=== PATIENT | male | born 1950 | race Caucasian/White ===

== ENCOUNTER 2021-03-09 20:52 | Inpatient (IN) | payer OTHER ==
--- OUTSIDE RECORDS SUMMARY | 2021-03-09 21:02 | XMS REPORT | Continuity of Care Document ---
:1950 Author Organization [facility] t Address [address] [place] [address] Care Team Providers Name Role Phone Michel SALAS-C, S Primary Care Physician SINCERE Attending Clinician Unavailable LEOBARDO Attending Clinician Unavailable NIDHI Attending Clinician Unavailable SOLEDAD Attending Clinician Unavailable MARTIN Attending Clinician Unavailable MICHEL Attending Clinician Unavailable Rachael FARIA Attending Clinician Unavailable MICHEL Attending Clinician Unavailable Arely Johnson MD Attending Clinician Rolf BRISENO Attending Clinician Fawad BENJAMIN Attending Clinician Unavailable SINCERE Attending Clinician Unavailable Veena Hall RN Attending Clinician Unavailable SOLEDAD Attending Clinician Unavailable STACIE Attending Clinician Unavailable Yuridia BRISENO TDara Attending Clinician Santi LEE Attending Clinician Unavailable Veena Monteiro Attending Clinician [phone] Epic, Transmittal User Attending Clinician Unavailable MILAN Attending Clinician Unavailable Jessica Piper RPH Attending Clinician Unavail able Breanna Roman Attending Clinician Unavailable Veena Orellana MD Attending Clinician JENNIFER Attending Clinician Unavailable WESLEY Attending Clinician Unavailable JESSE Attending Clinician Unavailable Attending Clinician Unavailable VALENTINE Attending Clinician Unavailable SHANNAN Attending Clinician Unavailable Payers Payer Name Policy Policy Number Effective Expiration Source Type Date Date AMERIGROUP MEDICARE [id number] 2019 ADVANTAGE PLAN 00:00:00 AMERIGROUPAMERIGROUP [id number] 2019 [place] DUAL OPTIONS STARPLUS 00:00:00 Met [place] [id number] 2019-Pre [place] AMERIVANTAGE [id number] 2019 00:00:00 TP24 QUALIFIED MEDICARE [id number] 2018 BENEFICIARY 00:00:00 AMERIGROUP MEDICARE [id number] 2019 Tashi stacy [id number] 00:00:00 Health [id number] [id number] [address] [place] MEDICAIDTP24 [id number] 2018 [facility] QUALIFIED MEDICARE 00:00:00 Health [phone] 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 12-21 Method i and and 00:00: st diastolic diastolic 00 ACC/AHA ACC/AHA stage C stage C congestive congestive heart heart failure failure COPD COPD Disease Active [place] (chronic (chronic 12-21 Method i obstructiv obstructiv 00:00: st e e 00 pulmonary pulmonary disease) disease) H/O ETOH H/O ETOH Disease Active [place] abuse abuse 12-21 Methodi 00:00: st 00 Long-term Long-term Disease Active Nathaniel ris use of use of 5-16 Health Plaquenil Plaquenil 00:00: 00 Kidney Kidney Disease Active [facility] mass mass 2-20 Health 00:00: 00 Renal Renal Disease Active Overview: [place] mass, left mass, left 1-25 Formattin Health 00:00: g of this 00 note might be different from the original. 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 2-16 Heal th involving involving 00:00: multiple multiple 00 sites with sites with positive positive rheumatoid rheumatoid factor factor Chronic, Chronic, Disease Active 2016-09 Tenz[place] s continuous continuous 1-12 He alth use of use of 00:00: opioids opioids 00 Left Left Disease Active 2016-09 [place] kidney kidney 1-05 Health mass mass 00:00: 00 Other Other Disease Active 2016-09 [place] emphysema emphysema 1-05 Heal th 00:00: 00 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, type 2, 00:00: uncontroll uncontroll 00 ed, with ed, with complicati complicati ons ons Depressive Depressive Disease Active H arris disorder, disorder, 1- Heal not not 00:00: elsewhere elsewhere 00 classified classified Ventral Ventral Disease Active [facility] hernia, hernia, 8-15 Health unspecifie unspecifie 00:00: d, without d, without 00 mention of mention of obstructio obstructio n or n or gangrene gangrene Major Major Disease Active [place] depression depression 7-29 He alth in partial in partial 00:00: remission remission 00 Alcohol Alcohol Disease Active [place] dependence dependence 04-11 He alth , in , in 00:00: remission remission 00 HTN HTN Disease Active Murphy (hypertens (hypertens 03-15 He alth ion) ion) 00:00: 00 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 Elevated Elevated Disease Active [facility] liver liver Health enzymes enzymes Obese Obese Disease Active [facility] Diabetes Diabetes Problem Active Unive rs mellitus mellitus ity of [place] Physici ans History of History of Problem Resolve Univers DKA DKA d ity of (diabetic (diabetic [place] ketoacidos ketoacidos Ph ysici es) es) ans History of History of Problem Resolve Univers ETOH abuse ETOH abuse d it y of [place] Physici ans HTN HTN Problem Active Univers (hypertens (hypertens it y of ion) ion) [place] [facility] ans Chronic Chronic Problem Active Univers GERD GERD ity of [place] [facility] ans Emphysema/ Emphysema/ Problem Active U nivers COPD COPD ity of [place] [facility] ans Left Left Problem Active Univers inguinal inguinal ity of hernia hernia [place] [facility] ans Recurrent Recurrent Problem Active Uni vers right right ity of inguinal inguinal [place] hernia hernia Physici ans History of History of Problem Active U nivers ETOH abuse ETOH abuse it y of [place] Physici ans Pain of Pain of Problem Active Univers right hand right hand it y of [place] [facility] ans Conflict Conflict Problem Active Unive rs between between ity of patient patient [place] and family and family Ph ysici ans Kidney Kidney Problem Active Univers mass mass ity of [place] Physici ans Post-nasal Post-nasal Problem Active U nivers drip drip ity of [place] Physici ans Status Status Problem Active Univers post post ity of inguinal inguinal [place] hernia hernia Physici repair repair ans Follow up Follow up Problem Active Uni vers ity of [place] [facility] ans Renal Renal Problem Active Univers carcinoma carcinoma ity of [place] [facility] ans Hematoma Hematoma Problem Active Unive rs ity of [place] Physici ans Dyspnea Dyspnea Problem Active Univers ity of [place] [facility] ans Nonproduct Nonproduct Problem Active U nivers jahaira cough jahaira cough ity of [place] Physici ans Systolic Systolic Problem Active Unive rs murmur murmur ity of [place] [facility] ans Combined Combined Problem Active Unive rs systolic systolic ity of and and [place] diastolic diastolic Phys ici heart heart ans failure failure COPD COPD Problem Active Univers (chronic (chronic [place]y of obstructiv obstructiv [place] e [place] Physici pulmonary pulmonary ans disease) disease) Bilateral Bilateral Problem Active Uni vers lower lower ity of extremity extremity [place] edema edema Physici ans Cirrhosis Cirrhosis Problem Active Uni vers ity of [place] [facility] ans Depression Depression Problem Active U nivers ity of [place] [facility] ans Preoperati Preoperati Problem Active U nivers ve ve [place] of clearance clearance [place] Anemia Anemia Problem Active Univers ity of [place] [facility] ans Hyperkalem Hyperkalem Problem Active U nivers ia ia ity of [place] [facility] ans Vitamin D Vitamin D Problem Active Uni vers deficiency deficiency it y of [place] [facility] ans Postoperat Postoperat Problem Active U nivers jahaira seroma jahaira seroma it y of of skin of skin [place] after after Physici non-dermat non-dermat an s ologic ologic procedure procedure CKD CKD Problem Active Univers (chronic (chronic ity of kidney kidney [place] disease) disease) Physic i ans Diabetic Diabetic Problem Active Unive rs peripheral peripheral it y of neuropathy neuropathy [place] associated associated Ph ysici with type with type ans 2 diabetes 2 diabetes mellitus mellitus Neuropathi Neuropathi Problem Active U nivers c pain c pain ity of [place] [facility]ici ans COVID-19 COVID-19 Problem Active Unive rs virus virus ity of detected detected [place] [facility] ans Diabetes Diabetes Problem Active Unive rs mellitus mellitus ity of with with [place] hypoglycem hypoglycem Ph ysici ia ia ans Bladder Bladder Problem Active Univers retention retention ity of of urine of urine [place] [facility] ans Sloughing Sloughing Problem Active Uni vers of wound of wound ity of [place] [facility] ans Pressure Pressure Problem Active Unive rs injury of injury of ity of sacral sacral [place] region, region, Physici stage 2 stage 2 ans Skin Skin Problem Active Univers lesions lesions ity of [place] [facility] ans Colon Colon Problem Active Univers polyps polyps ity of [place] [facility] ans Decubitus Decubitus Problem Active Uni vers ulcer, ulcer, ity of stage II stage II [place] Physici ans History of History of Problem Resolve Univers atrial atrial d ity of fibrillati fibrillati [place] on Physici ans Diabetic Diabetic Disease Resolve 2021-01-10 2021-01-10 [place] ulcer of ulcer of d 01-09 00:00:00 09:59:47 Me thodi left heel left heel 00:00: st associated associated 00 with type with type 2 diabetes 2 diabetes mellitus, mellitus, limited to limited to breakdown breakdown of skin of skin Stage III Stage III Disease Resolve 2021-01-10 2021-01-10 [place] pressure pressure d 12-21 00:00:00 09:59:54 Me [place] ulcer of ulcer of 00:00: st sacral sacral 00 region region Allergies, Adverse Reactions, Alerts Allergy Allergy Status Severity Reaction(s) Onset Inactive Treating Comm ents Source Name Type Date Date Clinician Metoprol Propensi Active Other (See Didn't [place] ol ty to Comments) 12-21 like it Method i adverse 00:00: st reaction 00 s to drug Venlafax Propensi Active Other (See unknown [place] ine ty to Comments) 12-21 Methodi adverse 00:00: st reaction 00 s to drug Venlafax Propensi Active TOM Murphy ine ty to 09-18 Health adverse 00:00: reaction 00 s to drug Metoprol Propensi Active Moderate Bruising Zambrano rris ol ty to 01-14 and leg Health adverse 00:00: swelling reaction 00 when on s to that drug medicine and cleared just after stopping so pt doesn't want to take again metoprol Allergy Active Univers ol to drug ity of (finding [place] Physici ans venlafax Allergy Active Univers ine to drug ity of (finding [place] Physici ans Family History Family Member Diagnosis Comments Start Date Stop Date Source Mother Family history of Univers ity of ETOH abuse [place] Physicia ns Father Family history of Univers ity of malignant neoplasm [place] [facility] of colon Natural father Cancer [place] [facility] Natural father Cancer [facility] Natural father Glaucoma [facility] Natural mother Alcohol abuse [place] Episcopalian Natural mother Psychiatry [facility] Natural brother Psychiatry [facility] Maternal aunt Stroke [place] [facility] Maternal Diabetes [facility] grandfather Maternal Heart [facility] grandfather Natural sister Cancer [facility] Social History Social Habit Start Date Stop Date Quantity Comments Source Sex Assigned At [facility] History [facility] Alcohol Std Episcopalian Drinks History [facility] Alcohol Binge Episcopalian History [facility] 2021-01-10 2021-01-10 1 [place] Alcohol Frequency 00:00:00 00:00:[address] Tobacco use and 2020-01-27 2020-01-27 Former user [facility] exposure 00:00:00 00:00:00 Alcohol intake 2020-01-27 2020-01-27 Current drinker of Zambrano rr Health 00:00:00 00:00:00 alcohol (finding) History [facility] Food 2019-02-15 2019-02-15 1 [facility] Worry 00:00:00 00:00:00 History [facility] Food 2019-02-15 2019-02-15 1 [facility] Scarcity 00:00:00 00:00:00 Tobacco Comment 2015-02-16 2015-02-16 quit 10 years ago Zam[facility]ano [facility] 00:00:00 00:00:00 Alcohol Comment 2015-02-16 2015-02-16 occassionally [facility] 00:00:00 00:00:00 History of 2006-12-10 Current smoker [facility] tobacco use 00:00:00 Smoking Status Start Date Stop Date Source Current every day smoker 2021-01-10 00:00:00 Ina Rincon Former smoker 2020-01-27 00:00:00 2020-01-27 00:00:00 [facility] Medications Ordered Filled Start Stop Current Ordering Indication Dosage Frequency Signature Comments Components Source Medication Medication Date Date Medication? Clinician (SIG) Name Name amIODarone Yes 200mg Take 200 [place] (PACERONE) 4-29 mg by Methodi 200 MG 09:40: mouth. st tablet 18 amLODIPine- Yes 10{caps QD Take 10 Key benazepriL 4-29 ule} capsules Metho di (LOTREL) 09:40: by mouth st 10-20 mg 18 daily. per capsule carvediloL Yes 6.25mg Q.5D Take 6.25 Key (COREG) 4-29 mg by Methodi 6.25 MG 09:40: mouth 2 st tablet 18 (two) times a day with meals. furosemide Yes 40mg Q.5D Take 40 mg [place] (LASIX) 40 4-29 by mouth 2 Met hodi mg tablet 09:40: (two) st 18 times a day. gabapentin Yes 300mg Q.[id number] Take 300 Key (NEURONTIN) 4-29 [id number] mg by M ethodi 300 mg 09:40: 3D mouth 3 st capsule 18 (three) times a day. One capsule in AM, TWO tablets at noon and one tablet in evening hydrALAZINE Yes 100mg Q.[id number] Take 100 Key (APRESOLINE 4-29 [id number] mg by M ethodi ) 100 MG 09:40: 3D mouth 3 st tablet 18 (three) times a day. INSULIN Yes Sliding [place] LISPRO 100 4-29 scale up Metho di UNIT/ML 09:40: to 30 st CARB COUNT 18 units SUBQ daily SOLUTION ORDERABLE (ADMELOG) isosorbide Yes 30mg QD Take 30 mg [place] mononitrate 4-29 by mouth Meth lori (IMDUR) 30 09:40: daily. st MG 24 hr 18 tablet lidocaine Yes 1{patch Q24H Place 1 [place] (LIDODERM) 4-29 } patch on Metho di 5 % 09:40: the skin st 18 daily. Remove & Discard patch within 12 hours or as directed by albuterol Yes 2{puff} Q8H Inhale 2 [place] (PROAIR 4-29 puffs Methodi HFA) 90 09:40: every 8 st mcg/actuati 18 (eight) on inhaler hours. collagenase Yes 1{appli QD Apply 1 Key (SANTYL) 4-29 cation} applicatio Me thodi ointment 09:40: n st 18 topically daily. SACRAL WOUND tamsulosin Yes .4mg QD Take 0.4 [place] (FLOMAX) 4-29 mg by Methodi 0.4 mg 09:40: mouth st capsule 18 daily with dinner. insulin Yes 26U QD Inject 26 [place] glargine 4-29 Units Methodi U-300 conc 09:40: under the st (Toujeo Max 18 skin U-300 daily. SoloStar) 300 unit/mL (3 mL) insulin pen traMADoL Yes acute pain 50mg Q.5D Take 50 mg Key (ULTRAM) 50 4-29 by mouth 2 Me thodi mg tablet 09:40: (two) st 18 times a day .acute pain. 1-2 tabs as needed tiotropium Yes 1{capsu QD Place 1 [place] (SPIRIVA) 4-29 le} capsule Methodi 18 mcg per 09:40: into st inhalation 05 inhaler capsule and inhale once daily. nitroglycer Yes .4mg Place 0.4 [place] in 4-29 mg under Methodi (NITROSTAT) 09:40: the tongue st 0.4 MG SL 00 every 5 tablet (five) minutes as needed for chest pain. Furosemide Furosemide Yes TAKE 1 Univers 40 MG Oral 40 MG Oral 4-05 TABLET i ty of Tablet Tablet 00:00: THREE [place] 00 DAILY. Physici ans Santyl 250 Santyl 250 Yes RENETTA apply a Univers UNIT/GM UNIT/GM 3-29 CAMACHO small ity of External External 00:00: GNP-BC amount of [place] Ointment Ointment 00 santyl Physi ci 1/2 to 1" ans inch to sacral wound daily until the slough is gone Sacral wound is 4 cm by 2 cm by 0.5 cm cover with a dressing of non stick dressing FreeStyle FreeStyle 2020- Yes KARIE Check U nivers He 2 He 2 2-18 WIRFEL blood ity of [place] 00:00: M.D. sugar up [place] Syst JOSÉ Systm JOSÉ 00 to 10 Ph ysici times ans daily and as needed. Use as directed for continuous glucose monitoring . FreeStyle FreeStyle 2019- Yes KARIE CHANGE ONE Univers He 2 He 2 2-04 WIRFEL SENSOR ity o f Sensor Sensor 00:00: M.D. EVERY 14 [place] Systm MISC Systm MISC 00 DAYS Phy sici ans pen needle, Yes Diabetes Inject [facility] diabetic 31 7-09 mellitus under the Health gauge x 00:00: type 2, skin 5 3/16" 00 uncontrolle times needles d, with daily. complicatio ns gabapentin 2019- Yes Diabetes 600mg Take 1 [place] (NEURONTIN) 7-09 mellitus tablet by Health 600 mg 00:00: type 2, mouth 3 tablet 00 uncontrolle times d, with daily Take complicatio 300mg in ns AM, 600mg at noon, and 300mg in PM. amLODIPine 2020-0 Yes Essential 10mg QD Take 1 [place] (NORVASC) 5-15 hypertensio tablet by Health 10 mg 00:00: n mouth tablet 00 daily. carvediloL 2020-0 Yes Essential 6.25mg Take 1 [place] (COREG) 5-15 hypertensio tablet by Health 6.25 mg 00:00: n mouth 2 tablet 00 times daily (with meals). insulin 2020-0 Yes Diabetes 45U QD Inject 45 H arr[place] glargine 5-15 mellitus Units Health U-300 conc 00:00: type 2, under the (TOUJEO 00 uncontrolle skin SOLOSTAR d, with daily. U-300 complicatio INSULIN) ns 300 unit/mL (1.5 mL) pen insulin 2020-0 Yes Diabetes Inject Tenzin is lispro, 5-15 mellitus under the Hea lt Human, 00:00: type 2, skin 7 (HUMALOG 00 uncontrolle units KWIKPEN d, with before INSULIN) complicatio breakfast, 100 unit/mL ns 7 units pen before lunch and 7 units before dinner. Carvedilol Carvedilol 2020-0 Yes SIMBO TAKE ONE Univers 6.25 MG 6.25 MG 4-20 CHIADIKA (1) ity o f Oral Tablet Oral Tablet 00:00: M.D. TABLET(S) [place] 00 BY MOUTH Physici TWICE ans DAILY WITH MEALS. hydrALAZINE hydrALAZINE 2020-0 Yes SIMBO 1 Q0.3333D TAKE 1 Univers HCl - 100 HCl - 100 4-20 CHIADIKA TABLET 3 ity of MG Oral MG Oral 00:00: M.D. TIMES [place] Tablet Tablet 00 DAILY Physici ans sildenafil 2020-0 Yes Take by [place] is citrate 4-17 mouth. Health (SILDENAFIL 10:15: OR) 59 FUROSEMIDE 2020-0 Yes 20mg QD Take 20 mg H arris OR 4-17 by mouth Health 10:11: daily . 50 lisinopriL 2020-0 Yes Essential 10mg QD Take 2 [facility] (PRINIVIL, 4-17 hypertensio tablets by Health ZESTRIL) 5 00:00: n mouth mg tablet 00 daily. glucagon, 2020-0 Yes Diabetes Inject Zambrano rris human 4-17 mellitus intramuscu Heal th recombinant 00:00: type 2, larly when , (GLUCAGON 00 uncontrolle signs and EMERGENCY d, with symptoms KIT) 1 complicatio of severe mg/mL ns low blood injection sugar (unconscio us).. traMADol traMADol 2019-0 Yes KARIE 1-2 tabs Univers HCl - 50 MG HCl - 50 MG 3-23 WIRFEL twice ity of Oral Tablet Oral Tablet 00:00: M.D. daily as [place] 00 needed fo Physici neuropathy ans pain lipase-prot 2019-0 Yes Alcohol-ind 1{capsu Q.[id number] Take 1 Murphy ease-amylas 3-06 uced le} [id number] capsule by [employer] (CREON) 00:00: chronic 3D mouth 3 ([id number] 00 pancreatiti times K UNIT) s daily with delayed rel meals. cap Spiriva Spiriva 2019-0 Yes RENETTA QD INHALE Un ovi HandiHaler HandiHaler 2-14 CAMACHO CONTENTS ity of 18 MCG 18 MCG 00:00: GNP-BC OF ONE (1) [place] Inhalation Inhalation 00 CAPSULE Physici Capsule Capsule VIA ans HANDIHALER ONCE A DAY. Albuterol Albuterol 2019-0 Yes SIMBO INHALE ONE Univers Sulfate HFA Sulfate HFA 2-14 CHIADIKA (1) ity of 108 (90 108 (90 00:00: M.D. PUFF(S) BY [place] Base) Base) 00 MOUTH Physici MCG/ACT MCG/ACT EVERY ans Inhalation Inhalation EIGHT Aerosol Aerosol HOURS Solution Solution NEEDED FOR CHEST TIGHTNESS/ SHORTNESS OF BREATH. 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 blood 2019-0 Yes Uncontrolle 3 times Zambrano rris glucose 1-10 d type 2 daily Health test strips 00:00: diabetes Please 00 mellitus dispense with brand that complicatio insurance n, with covers. long-term current use of insulin diclofenac 2018- Yes Rheumatoid 2g Apply 2 g [facility] (VOLTAREN) 8-05 arthritis to Heal th 1 % gel 00:00: involving affected 00 multiple area 4 sites with times positive daily. rheumatoid factor tamsulosin Yes Benign .4mg QD Take 1 Nathaniel ris (FLOMAX) 8-05 prostatic capsule by [facility] 0.4 mg 00:00: hyperplasia mouth extended 00 with daily. release urinary capsule frequency gabapentin 2019- No Diabetes 600mg Take 1 [facility] (NEURONTIN) 805 - mellitus tablet by [facility] 600 mg 00:00: 00:00 type 2, mouth 3 tablet 00 :00 uncontrolle times d, with daily Take complicatio 300mg in ns AM, 600mg at noon, and 300mg in PM. varicella-z 2019- No Encounter .5mL [facility] deana 5-31 03-22 for Health recombinant 15:30: 17:08 administrat vaccine 00 :03 ion of (SHINGRIX) vaccine 50 mcg/0.5 mL injection kit 0.5 mL pen needle, 2019- No Diabetes Inject [place] diabetic 31 2-21 03-22 mellitus under the Health gauge x 00:00: 00:00 type 2, skin 5 3/16" 00 :00 uncontrolle times needles d, with daily. complicatio ns Toujeo Toujeo 2017-09 Yes KARIE take 26 Unive rs SoloStar SoloStar 1-15 WIRFEL units ity of 300 UNIT/ML 300 UNIT/ML 00:00: M.D. subcutaneo [place] Subcutaneou Subcutaneou 00 usly daily Physici s Solution s Solution ans Pen-injecto Pen-injecto r r Lidocaine 5 Lidocaine 5 2017-09 Yes RENETTA APPLY 1 Univers % External % External 1-15 CAMACHO INCH Twice ity of Ointment Ointment 00:00: GNP-BC daily PRN [place] 00 pain apply Physici lightly to ans joints right hand Insulin Insulin 2017-09 Yes KARIE Inject Univ ers Lispro (1 Lispro (1 1-15 WIRFEL Subcutaneo ity of Unit Dial) Unit Dial) 00:00: M.D. usly with [place] 100 UNIT/ML 100 UNIT/ML 00 each meal Physici Subcutaneou Subcutaneou per a ns s Solution s Solution sliding Pen-injecto Pen-injecto scale up r r to 30 units Daily blood Yes Use as [place] glucose 8-29 directed. Health meter 00:00: 3 times 00 daily check sugars. Dispense one touch ultra meter or whatever insurance covers. Dx: E11.65 Z79.4. lancets Yes 3 times [place] 8-29 daily Health 00:00: check 00 sugars. Dispense one touch ultra meter or whatever insurance covers. Dx: E11.65 Z79.4. Gabapentin Gabapentin Yes KARIE TAKE 1 Univers 300 MG Oral 300 MG Oral 816 WIRFEL CAPSULE IN ity of Capsule Capsule 00:00: M.D. AM, 2 [place] 00 TABLETS AT Physici NOON AND 1 ans IN THE EVENING. Nitroglycer Nitroglycer Yes PLACE 1 Univers in 0.4 MG in 0.4 MG 816 TABLET ity of Sublingual Sublingual 00:00: UNDER THE [place] Tablet Tablet 00 TONGUE Physici Sublingual Sublingual EVERY 5 ans MINUTES FOR UP TO 3 DOSES NEEDED FOR CHEST PAIN.CALL 911 IF PAIN PERSISTS. Tamsulosin Tamsulosin Yes RENETTA TAKE ONE Univers HCl - 0.4 HCl - 0.4 8-16 CAMACHO (1) ity o f MG Oral MG Oral 00:00: GNP-BC CAPSULE(S) [place] Capsule Capsule 00 BY MOUTH Physi ci ONCE A ans DAY. multivitami 2009-09 Yes DM 1{tbl} QD Take 1 Tab Murphy n tablet 2-10 (diabetes by mouth He alth 00:00: mellitus) daily. 00 type II uncontrolle d with renal manifestati on Diclofenac Diclofenac Yes QD APPLY Un ovi Sodium 1 % Sodium 1 % SPARINGLY ity of GEL GEL TO [place] AFFECTED Physici AREA(S) ans ONCE DAILY Immunizations Ordered Filled Date Status Comments Source Immunization Name Immunization Name Moderna Sars-cov-2 2020-10-16 Completed [facility] Vaccination 00:00:00 Moderna Sars-cov-2 2020-09-18 Completed [facility] Vaccination 00:00:00 Moderna COVID-19 2020-09-18 Completed Universi ty of Vaccine 100 00:00:00 [place] MCG/0.5ML Physicians Intramuscular Suspension Fluzone High-Dose 2019-06-27 Completed [facility] 0.5 ML 00:00:00 [place] [facility] Suspension Prefilled Syringe Influenza, 2019-06-26 Completed [facility] Vaccine<Flubok> 00:00:00 (Preservative Free) Shingrix 50 2019-03-08 Completed University of MCG/0.5ML 00:00:00 [place] [facility] Suspension Reconstituted Zoster Vaccine 2019-02-11 Completed [facility] lt (Shingrix) 00:00:00 PCV 13 2018-10-02 Completed [facility] (Pnuemococcal 00:00:00 Conjugated 13 Valent) Fluzone High-Dose 2018-07-29 Completed [facility] 0.5 ML 00:00:00 [place] [facility] Suspension Prefilled Syringe Influenza 2018-07-26 Completed [facility] <Unspecified> 00:00:00 Zoster Vaccine 2018-04-26 Completed [facility] lt (Shingrix) 00:00:00 PNEUMOCOCCAL 2017-12-[address] [facility] h 23-VALPS VACCINE 25 00:00:00 MCG/0.5 ML INJECTION Influenza, 2017-06-22 Completed [facility] Injectable, 00:00:00 Quadrivalent PCV 13 2016-10-07 Completed [facility] (Pnuemococcal 00:00:00 Conjugated 13 Valent) Influenza Vaccine 2016-08-19 Completed [facility] 00:00:00 Influenza Vaccine 2015-07-13 Completed [facility] 00:00:00 Influenza Vaccine 2014-06-22 Completed [facility] 00:00:00 Tdap Tetanus, 2014-06-22 Completed [facility] th diphtheria, 00:00:00 acellular pertussis Vaccine Influenza Vaccine 2013-06-27 Completed [facility] 00:00:00 Twinrix-HEP A&b 2012-07-02 Completed [facility] alth 00:00:00 Influenza Vaccine 2012-06-08 Completed [facility] 00:00:00 Twinrix-HEP A&b 2012-01-21 Completed [facility] alth 00:00:00 Twinrix-HEP A&b 2012-01-01 Completed [facility] alth 00:00:00 Influenza Vaccine 2011-07-11 Completed [facility] 00:00:00 Influenza Vaccine 2010-08-23 Completed [facility] 00:00:00 PPV 23 Pneumococcal 2009-09-14 Completed [facility] Polysaccaride 00:00:00 Pneumococcal Unknown Completed [facility] polysaccharide [id number] [place] vaccine, 23 valent Physic ians Fluzone High-Dose Unknown Completed [facility] 0.5 ML [id number] [place] [facility] Suspension Prefilled Syringe Moderna COVID-19 Unknown Completed [facility] Vaccine 100 [place] MCG/0.5ML Physicians Intramuscular Suspension Vital Signs Vital Name Observation Time Observation Value Comments Source Systolic blood 2021-01-14 153 mm[Hg] Location: [facility]; [facility] 15:10:00 Position: [place] [facility] Standing Diastolic blood 2021-01-14 80 mm[Hg] Location: RUE; [facility] pressure 15:10:00 Position: [place] [facility] Standing Heart Rate 2021-01-14 42 /min [facility] 15:10:00 [place] [facility] Systolic blood 2021-01-14 154 mm[Hg] Location: JOHN; [facility] 15:05:00 Position: [place] [facility] Sitting Diastolic blood 2021-01-14 84 mm[Hg] Location: JOHN; [facility] 15:05:00 Position: [place] [facility] Sitting Heart Rate 2021-01-14 51 /min [facility] 15:05:00 [place] [facility] Body height 2021-01-14 72 [in_us] [facility] 15:05:00 [place] [facility] Weight 2021-01-14 162.5 [lb_av] [facility] 15:05:00 [place] [facility] Body mass index 2021-01-14 22.04 kg/m2 University o f (BMI) [Ratio] 15:05:00 [place] [facility] Body temperature 2021-01-14 96.8 [degF] Method: [facility] 15:05:00 Temporal [place] [facility] Systolic blood 2021-01-10 105 mm[Hg] [place] pressure 10:15:00 [facility] Diastolic blood 2021-01-10 68 mm[Hg] [place] pressure 10:15:00 [facility] Heart rate 2021-01-10 76 /min [place] 10:15:00 [facility] Body temperature 2021-01-10 36 Tejal [place] 09:50:00 [facility] Respiratory rate 2021-01-10 17 /min [place] 09:50:00 [facility] Body height 2021-01-10 182.9 cm [place] 09:50:00 [facility] Body weight 2021-01-10 72.576 kg [place] 09:50:00 [facility] BMI 2021-01-10 21.70 kg/m2 [place] 09:50:00 [facility] Systolic blood 2020-12-18 142 mm[Hg] Location: JOSIAS; [facility] 10:40:00 Position: [place] [facility] Sitting Diastolic blood 2020-12-18 70 mm[Hg] Location: JOHN; [facility] 10:40:00 Position: [place] [facility] Sitting Body height 2020-12-18 72 [in_us] [facility] 10:40:00 [place] [facility] Weight 2020-12-18 161.2 [lb_av] [facility] 10:40:00 [place] [facility] Body mass index 2020-12-18 21.86 kg/m2 University o f (BMI) [Ratio] 10:40:00 [place] [facility] Body temperature 2020-12-18 99.3 [degF] Method: [facility] 10:40:00 Temporal [place] [facility] Heart Rate 2020-12-18 62 /min Location: R [facility] 10:40:00 Brachial [place] [facility] Artery; Respiratory rate 2020-12-18 20 /min [facility] 10:40:00 [place] [facility] Systolic blood 2020-12-17 95 mm[Hg] Location: JOSIAS; [facility] pressure 10:08:00 Position: [place] [facility] Standing Diastolic blood 2020-12-17 65 mm[Hg] Location: JOSIAS; [facility] 10:08:00 Position: [place] [facility] Standing Heart Rate 2020-12-17 71 /min Location: R [facility] 10:08:00 Brachial [place] [facility] Artery; Systolic blood 2020-12-17 151 mm[Hg] Location: JESUS; [facility] pressure 10:04:00 Position: [place] [facility] Sitting Diastolic blood 2020-12-17 94 mm[Hg] Location: JOVI; [facility] pressure 10:04:00 Position: [place] [facility] Sitting Heart Rate 2020-12-17 73 /min Location: L [facility] 10:04:00 Brachial [place] [facility] Artery; Body height 2020-12-17 72 [in_us] [facility] 10:04:00 [place] [facility] Weight 2020-12-17 163.125 [lb_av] [facility] o f 10:04:00 [place] [facility] Body mass index 2020-12-17 22.12 kg/m2 University o f (BMI) [Ratio] 10:04:00 [place] [facility] Body temperature 2020-12-17 96.3 [degF] Method: [facility] 10:04:00 Tympanic [place] [facility] Body mass index 2020-12-10 21.84 kg/m2 University o f (BMI) [Ratio] 09:47:00 [place] [facility] Body temperature 2020-12-10 96.7 [degF] Method: [facility] 09:47:00 Temporal [place] [facility] Heart Rate 2020-12-10 73 /min [facility] 09:47:00 [place] [facility] Systolic blood 2020-12-10 139 mm[Hg] Location: JOVI; [facility] pressure 09:47:00 Position: [place] [facility] Sitting Diastolic blood 2020-12-10 70 mm[Hg] Location: VERN [facility] 09:47:00 Position: [place] [facility] Sitting Body height 2020-12-10 72 [in_us] [facility] 09:47:00 [place] [facility] Weight 2020-12-10 161 [lb_av] [facility] of 09:47:00 [place] [facility] Oxygen saturation 2020-11-02 98 /min [place] in Arterial blood 21:56:00 [facility] by Pulse oximetry Systolic blood 2020-10-15 129 mm[Hg] Location: VERN [facility] 10:41:00 Position: [place] [facility] Standing Diastolic blood 2020-10-15 76 mm[Hg] Location: VERN [facility] 10:41:00 Position: [place] [facility] Standing Heart Rate 2020-10-15 81 /min Location: Catherine [facility] 10:41:00 Brachial [place] [facility] Artery; Systolic blood 2020-10-15 134 mm[Hg] Location: VERN [facility] 10:38:00 Position: [place] [facility] Sitting Diastolic blood 2020-10-15 60 mm[Hg] Location: VERN [facility] pressure 10:38:00 Position: [place] [facility] Sitting Heart Rate 2020-10-15 69 /min Location: Catherine [facility] 10:38:00 Brachial [place] [facility] Artery; Body height 2020-10-15 72 [in_us] [facility] 10:38:00 [place] [facility] Weight 2020-10-15 153.5 [lb_av] [facility] 10:38:00 [place] [facility] Body mass index 2020-10-15 20.82 kg/m2 University o f (BMI) [Ratio] 10:38:00 [place] [facility] Body temperature 2020-10-15 97.2 [degF] [facility] 10:38:00 [place] [facility] O2 SAT 2020-10-15 100 % Source: [facility] 10:38:00 [place] [facility] Systolic blood 2020-08-17 140 mm[Hg] [facility] pressure 14:33:00 [place] [facility] Diastolic blood 2020-08-17 78 mm[Hg] [facility] pressure 14:33:00 [place] [facility] Systolic blood 2020-08-17 151 mm[Hg] Location: RUE; [facility] pressure 10:16:00 Position: [place] [facility] Sitting Diastolic blood 2020-08-17 76 mm[Hg] Location: RUE; [facility] pressure 10:16:00 Position: [place] [facility] Sitting Heart Rate 2020-08-17 61 /min Location: R [facility] 10:16:00 Brachial [place] [facility] Artery; Systolic blood 2020-08-17 160 mm[Hg] Location: RUE; [facility] pressure 10:12:00 Position: [place] [facility] Sitting Diastolic blood 2020-08-17 76 mm[Hg] Location: RUE; [facility] pressure 10:12:00 Position: [place] [facility] Sitting Heart Rate 2020-08-17 73 /min Location: R [facility] 10:12:00 Brachial [place] [facility] Artery; Body height 2020-08-17 72 [in_us] [facility] 10:12:00 [place] [facility] Weight 2020-08-17 149.0 [lb_av] [facility] 10:12:00 [place] [facility] Body mass index 2020-08-17 20.21 kg/m2 University o f (BMI) [Ratio] 10:12:00 [place] [facility] Body temperature 2020-08-17 97.3 [degF] Method: [facility] 10:12:00 Temporal [place] [facility] Respiratory rate 2020-08-17 16 /min [facility] 10:12:00 [place] [facility] Systolic blood 2020-05-14 116 mm[Hg] Location: RUE; [facility] pressure 10:56:00 Position: [place] [facility] Sitting Diastolic blood 2020-05-14 57 mm[Hg] Location: RUE; [facility] pressure 10:56:00 Position: [place] [facility] Sitting Body height 2020-05-14 72 [in_us] [facility] 10:56:00 [place] [facility] Body mass index 2020-05-14 20.37 kg/m2 [facility] o f (BMI) [Ratio] 10:56:00 [place] [facility] Weight 2020-05-14 150.2 [lb_av] [facility] 10:56:00 [place] [facility] Body temperature 2020-05-14 98.2 [degF] Method: [facility] 10:56:00 Temporal [place] [facility] Heart Rate 2020-05-14 57 /min Location: R [facility] 10:56:00 Brachial [place] [facility] Artery; Respiratory rate 2020-05-14 16 /min Quality: Normal [facility] 10:56:00 [place] [facility] Systolic blood 2020-05-14 125 mm[Hg] Location: RUE; [facility] pressure 09:32:00 Position: [place] [facility] Standing Diastolic blood 2020-05-14 70 mm[Hg] Location: RUE; [facility] pressure 09:32:00 Position: [place] [facility] Standing Heart Rate 2020-05-14 65 /min [facility] 09:32:00 [place] [facility] Systolic blood 2020-05-14 129 mm[Hg] Location: RUE; [facility] pressure 09:31:00 Position: [place] [facility] Sitting Diastolic blood 2020-05-14 67 mm[Hg] Location: RUE; [facility] pressure 09:31:00 Position: [place] [facility] Sitting Heart Rate 2020-05-14 73 /min [facility] 09:31:00 [place] [facility] Body height 2020-05-14 72 [in_us] University 09:31:00 [place] [facility] Weight 2020-05-14 150 [lb_av] University 09:31:00 [place] [facility] Body mass index 2020-05-14 20.34 kg/m2 University o f (BMI) [Ratio] 09:31:00 [place] [facility] Body temperature 2020-05-14 97.8 [degF] Method: [facility] 09:31:00 [place] [facility] Systolic blood 2020-05-07 133 mm[Hg] [facility] pressure 09:42:00 [place] [facility] Diastolic blood 2020-05-07 77 mm[Hg] [facility] pressure 09:42:00 [place] [facility] Systolic blood 2020-04-30 181 mm[Hg] [facility] pressure 11:36:00 [place] [facility] Diastolic blood 2020-04-30 119 mm[Hg] [facility] pressure 11:36:00 [place] [facility] Heart Rate 2020-04-30 71 /min [facility] 11:36:00 [place] [facility] Systolic blood 2020-01-02 155 mm[Hg] [facility] pressure 16:44:00 [place] [facility] Diastolic blood 2020-01-02 104 mm[Hg] [facility] pressure 16:44:00 [place] [facility] Heart Rate 2020-01-02 75 /min [facility] 16:44:00 [place] [facility] Systolic blood 2019 132 mm[Hg] [facility] pressure 09:48:00 [place] [facility] Diastolic blood 2019 74 mm[Hg] [facility] pressure 09:48:00 [place] [facility] Body height 2019 72 [in_us] [facility] 09:48:00 [place] [facility] Weight 2019 153.8 [lb_av] [facility] 09:48:00 [place] [facility] Body mass index 2019 20.86 kg/m2 University o f (BMI) [Ratio] 09:48:00 [place] [facility] Body temperature 2019 97.5 [degF] [facility] 09:48:00 [place] [facility] Heart Rate 2019 70 /min [facility] 09:48:00 [place] [facility] Systolic blood 2019-11-18 158 mm[Hg] [place] [facility] [facility] 08:13:00 Position: [place] [facility] Standing Diastolic blood 2019-11-18 89 mm[Hg] Location: JESUS; [facility] 08:13:00 Position: [place] [facility] Standing Heart Rate 2019-11-18 71 /min Location: [facility] 08:13:00 Brachial [place] [facility] Artery; Systolic blood 2019-11-18 159 mm[Hg] [place] [facility] [facility] 08:11:00 Position: [place] [facility] Sitting Diastolic blood 2019-11-18 90 mm[Hg] Location: [facility] 08:11:00 Position: [place] [facility] Sitting Heart Rate 2019-11-18 72 /min Location: [facility] 08:11:00 Brachial [place] [facility] Artery; Body height 2019-11-18 72 [in_us] [facility] 08:11:00 [place] [facility] Weight 2019-11-18 159 [lb_av] [facility] 08:11:00 [place] [facility] Body mass index 2019-11-18 21.56 kg/m2 University o f (BMI) [Ratio] 08:11:00 [place] [facility] Body temperature 2019-11-18 97.1 [degF] Method: Oral [facility] 08:11:00 [place] [facility] Temperature 2019-10-03 97.7 [degF] Method: Oral [facility] 09:27:00 [place] [facility] BP Systolic 2019-10-03 150 mm[Hg] Location: JOVI; [facility] Position: [place] [facility] Standing BP Diastolic 2019-10-03 79 mm[Hg] Location: JOVI; [facility] :: Position: [place] [facility] Standing Heart Rate 2019-10-03 52 /min Location: [facility] :: Brachial [place] [facility] Artery; BP Systolic 2019-10-03 153 mm[Hg] Location: JESUS; [facility] :: Position: [place] [facility] Sitting BP Diastolic 2019-10-03 82 mm[Hg] Location: JOVI; [facility] :: Position: [place] [facility] Sitting Temperature 2019-10-03 97.7 [degF] Method: Oral [facility] :: [place] [facility] Heart Rate 2019-10-03 57 /min Location: [facility] :: Brachial [place] [facility] Artery; Height 2019-10-03 72 [in_us] [facility] :: [place] [facility] Weight 2019-10-03 161.5 [lb_av] [facility] :: [place] [facility] Body Mass Index 2019-10-03 21.9 kg/m2 University o f Calculated 09::00 [place] [facility] BP Systolic 2019-09-02 132 mm[Hg] [facility] :34: Position: [place] [facility] Standing BP Diastolic 2019-09-02 72 mm[Hg] [place] [facility] [facility] :34: Position: [place] [facility] Standing Heart Rate 2019-09-02 80 /min [facility] :34: [place] [facility] BP Systolic 2019-09-02 129 mm[Hg] Location: JESUS; [facility] :32: Position: [place] [facility] Sitting BP Diastolic 2019-09-02 70 mm[Hg] Location: [facility] :32: Position: [place] [facility] Sitting Heart Rate 2019-09-02 84 /min [facility] :32:00 [place] [facility] Height 2019-09-02 72 [in_us] University of :32:00 [place] [facility] Weight 2019-09-02 174.125 [lb_av] University o f 10:32:00 [place] [facility] Body Mass Index 2019-09-02 23.62 kg/m2 University o f Calculated 10:32:00 [place] [facility] Temperature 2019-09-02 97.5 [degF] Method: Oral [facility] 10:32:00 [place] [facility] BP Systolic 2019-08-10 129 mm[Hg] Location: JOVI; [facility] 10:38:00 Position: [place] [facility] Standing BP Diastolic 2019-08-10 77 mm[Hg] Location: JOVI; [facility] :38:00 Position: [place] [facility] s Standing Heart Rate 2019-08-10 83 /min [facility] 10:38:00 [place] [facility] BP Systolic 2019-08-10 114 mm[Hg] Location: JOVI; [facility] 10:36:00 Position: [place] [facility] Sitting BP Diastolic 2019-08-10 64 mm[Hg] Location: JOVI; [facility] 10:36:00 Position: [place] [facility] Sitting O2 SAT 2019-08-10 93 % Source: [facility] of 10:36:00 [place] [facility] Heart Rate 2019-08-10 64 /min University of 10:36:00 [place] [facility] Height 2019-08-10 72 [in_us] [facility] of 10:36:00 [place] [facility] Weight 2019-08-10 164.375 [lb_av] University o f 10:36:00 [place] [facility] Body Mass Index 2019-08-10 22.29 kg/m2 University o f Calculated 10:36:00 [place] [facility] Temperature 2019-08-10 97.8 [degF] Method: Oral [facility] 10:36:00 [place] [facility] BP Systolic 2019-06-29 134 mm[Hg] Location: JOVI; [facility] 13:08:00 Position: [place] [facility] s Sitting BP Diastolic 2019-06-29 81 mm[Hg] Location: JOVI; [facility] 13:08:00 Position: [place] [facility] Sitting O2 SAT 2019-06-29 98 % Source: [facility] 13:08:00 [place] [facility] Heart Rate 2019-06-29 66 /min Location: [facility] 13:08:00 Brachial [place] [facility] Artery; Height 2019-06-29 72 [in_us] University of 13:08:00 [place] [facility] Weight 2019-06-29 161.5 [lb_av] [facility] of 13:08:00 [place] [facility] Body Mass Index 2019-06-29 21.9 kg/m2 University o f Calculated 13:08:00 [place] [facility] Temperature 2019-06-29 97.5 [degF] Method: [facility] of 13:08:00 [place] [facility] BP Systolic 2019-06-28 131 mm[Hg] Location: [facility] 12:23:00 Position: [place] [facility] Sitting BP Diastolic 2019-06-28 87 mm[Hg] Location: [facility] 12:23:00 Position: [place] [facility] Sitting Heart Rate 2019-06-28 64 /min [facility] 12:23:00 [place] [facility] Temperature 2019-06-28 97.6 [degF] [facility] 12:23:00 [place] [facility] O2 SAT 2019-06-28 100 % Source: [facility] 12:23:00 [place] [facility] BP Systolic 2019-06-28 130 mm[Hg] University 10:26: [place] [facility] BP Diastolic 2019-06-28 69 mm[Hg] [facility] 10:26:00 [place] [facility] Height 2019-06-28 72 [in_us] University 10:26:00 [place] [facility] Weight 2019-06-28 169.6 [lb_av] [facility] 10:26:00 [place] [facility] Body Mass Index 2019-06-28 23 kg/m2 University o f Calculated 10:26:00 [place] [facility] Temperature 2019-06-28 97.3 [degF] [facility] 10:26:00 [place] [facility] Heart Rate 2019-06-28 67 /min University 10:26:00 [place] [facility] BP Systolic 2019-06-07 154 mm[Hg] University 09:43:00 [place] [facility] BP Diastolic 2019-06-07 86 mm[Hg] University 09:43:00 [place] [facility] Height 2019-06-07 72 [in_us] University 09:43:00 [place] [facility] Weight 2019-06-07 169 [lb_av] University 09:43:00 [place] [facility] Body Mass Index 2019-06-07 22.92 kg/m2 University o f Calculated 09:43:00 [place] [facility] Temperature 2019-06-07 98.1 [degF] [facility] 09:43:00 [place] [facility] Heart Rate 2019-06-07 62 /min University 09:43:00 [place] [facility] Heart Rate 2019-03-28 64 /min Location: [facility] 09:18:00 Radial; [place] [facility] Quality: Normal BP Systolic 2019-03-28 148 mm[Hg] [facility] [place] [facility] 09:10:00 Position: [place] [facility] Standing BP Diastolic 2019-03-28 99 mm[Hg] [place] [facility] [facility] 09:10:00 Position: [place] [facility] Standing Heart Rate 2019-03-28 42 /min University of 09:10:00 [place] [facility] BP Systolic 2019-03-28 147 mm[Hg] [place] [facility] [facility] 09:09:00 Position: [place] [facility] Sitting BP Diastolic 2019-03-28 83 mm[Hg] [place] [facility] [facility] 09:09:00 Position: [place] [facility] Sitting Heart Rate 2019-03-28 74 /min [facility] 09:09:00 [place] [facility] Height 2019-03-28 72 [in_us] University 09:09:00 [place] [facility] Weight 2019-03-28 169.125 [lb_av] University o 09:09:00 [place] [facility] Body Mass Index 2019-03-28 22.94 kg/m2 University o f Calculated 09:09:00 [place] [facility] Temperature 2019-03-28 97.9 [degF] Method: Oral University 09:09:00 [place] [facility] BP Systolic 2019-03-08 154 mm[Hg] [place] [facility] [facility] 14:46:00 Position: [place] [facility] Sitting BP Diastolic 2019-03-08 83 mm[Hg] Location: [facility] 14:46:00 Position: [place] [facility] Sitting Height 2019-03-08 72 [in_us] University of 14:46:00 [place] [facility] Weight 2019-03-08 170 [lb_av] [facility] 14:46:00 [place] [facility] Body Mass Index 2019-03-08 23.06 kg/m2 University o Calculated 14:46:00 [place] [facility] Temperature 2019-03-08 97.8 [degF] Method: University 14:46:00 Temporal [place] [facility] Heart Rate 2019-03-08 69 /min University of 14:46:00 [place] [facility] BP Systolic 2019-02-01 140 mm[Hg] University of 09:46:00 [place] [facility] BP Diastolic 2019-02-01 87 mm[Hg] University of 09:46:00 [place] [facility] Height 2019-02-01 72 [in_us] [facility] of 09:46:00 [place] [facility] Weight 2019-02-01 167.8 [lb_av] [facility] of 09:46:00 [place] [facility] Body Mass Index 2019-02-01 22.76 kg/m2 University o f Calculated 09:46:00 [place] [facility] Heart Rate 2019-02-01 76 /min [facility] 09:46:00 [place] [facility] Procedures Procedure Date / Time Performing Clinician Source Performed HC [facility] 2021-01-10 09:30:00 Itzel Bansalist 20SQCM OR < [O] Hemoglobin A1c (in 2020-12-18 00:00:00 [facility] office) Physicians Glucose (Point of Care In 2020-12-18 00:00:00 [facility] Office) Physicians [QL] BASIC METABOLIC 2020-12-17 00:00:00 [facility] PANEL W/EGFR Physicians HC COMPLETE BLD COUNT 2020-11-02 20:34:00 Jose Gonzalez [facility] W/AUTO DIFF COMPREHENSIVE METABOLIC 2020-11-02 20:06:00 Jose Gonzalez PANEL ESTIMATED GFR 2020-11-02 20:06:00 Jose Gonzalez ethodist ECG 12-LEAD 2020-11-02 19:42:39 Jose Gonzalez ethodist ECG ED PRELIMINARY 2020-11-02 19:20:05 Jose Gonzalez [facility] INTERPRETATION [Q] COMPREHENSIVE 2020-10-15 00:00:00 [facility] METABOLIC PANEL W/eGFR Physician s (REFL) [O] Hemoglobin A1c (in 2020-08-17 00:00:00 [facility] office) Physicians Glucose (Point of Care In 2020-08-17 00:00:00 [facility] Office) Physicians [QL] CBC (INCLUDES 2020-05-30 00:00:00 [facility] DIFF/PLT) Physicians [QL] CMP W/EGFR 2020-05-30 00:00:00 [facility] [place] [facility] [QL] LIPID PANEL 2020-05-30 00:00:00 [facility] Physicians [QL] PROTHROMBIN TIME-INR 2020-05-30 00:00:00 Un [facility] Physicians [Q] COMPREHENSIVE 2020-04-30 00:00:00 [facility] METABOLIC PANEL W/eGFR Physician s (REFL) [QL] COMPREHENSIVE 2020-01-02 00:00:00 [facility] METABOLIC PANEL W/O eGFR Physici ans [UTP] Neuro - 2019 00:00:00 [facility] Interventional Radiology Physici ans [QLH] HEMOGLOBIN A1c 2019-11-18 00:00:00 [facility] Physicians [QLH] CMP W/EGFR 2019-11-18 00:00:00 [facility] Physicians [QLH] VITAMIN D, 2019-11-18 00:00:00 [facility] 25-HYDROXY, LC/MS/MS Physicians [QLH] PROTHROMBIN 2019-10-17 00:00:00 [facility] TIME-INR Physicians [QLH] CBC (INCLUDES 2019-10-17 00:00:00 [facility] DIFF/PLT) Physicians [QLH] BASIC METABOLIC 2019-10-17 00:00:00 [facility] PANEL W/EGFR Physicians [QLH] HEPATIC FUNCTION 2019-10-17 00:00[facility] [QLH] PROBNP, N TERMINAL 2019-10-03 00:00:00 [facility] [Q] COMPREHENSIVE 2019-10-03 00:00:00 [facility] METABOLIC PANEL W/eGFR Physician s (REFL) Coronary Angiography 2019-10-03 00:00:00 [facility] Physicians [QLH] CMP W/EGFR 2019-09-02 00:00:00 [facility] Physicians [QLH] HEMOGLOBIN A1c 2019-09-02 00:00:00 [facility] Physicians [QLH] OCCULT BLOOD, 2019-08-22 00:00:00 [facility] STOOL, SCREENING Physicians [L] BMP8+eGFR 2019-08-10 00:00:00 [facility] Physicians [L] Vitamin D, 2019-08-10 00:00:00 [facility] 25-Hydroxy, Total - Physicians [employer] [QLH] CBC (INCLUDES 2019-08-10 00:00:00 [facility] DIFF/PLT) Physicians [QL] LIPID PANEL 2019-08-10 00:00:00 [facility] Physicians [LH] TSH+Free T4 2019-08-10 00:00:00 [facility] Physicians [N] 2D Echo complete, 2019-07-02 00:00:00 [facility] with Doppler [id number] Abdomen/Pelvis w 2019-06-28 00:00:00 [facility] contrast 09014 Physicians [QL] CBC (INCLUDES 2019-06-07 00:00:00 [facility] DIFF/PLT) Physicians [QL] BASIC METABOLIC 2019-06-07 00:00:00 [facility] PANEL W/EGFR Physicians CT Abdomen/Pelvis wo 2019-06-07 00:00:00 [facility] contrast [id number] Abd Renal Protocol 2019-06-07 00:00:00 [facility] w/wo IV contrast 77617-56 Physic ians XRAY Chest 2 views 17295 2019-06-07 00:00:00 [facility]] HEPATITIS C 2019-03-28 00:00:00 [facility] ANTIBODY Physicians CT Abd Renal Protocol 2019-03-08 00:00:00 [facility] w/[place] contrast 77014-28 Physic ians History of Hernia Repair [facility] Physicians History of Cataract [facility] surgery Physicians History of Cardioverter [facility] defibrillator insertion Physicia ns Plan of Care Planned Activity Planned Date Details Comments Source Future Scheduled 2021-06-14 IMM Influenza Seasonal [facility] Test 00:00:00 Jun to November (>/= 19 yrs) [code = IMM Influenza Seasonal Jun to November (>/= 19 yrs)] Future Scheduled 2021-04-14 INFLUENZA VACCINE [code [facility] Test 00:00:00 = INFLUENZA VACCINE] Future Scheduled 2020-10-18 Hemoglobin A1c [facility] Test 00:00:00 measurement (procedure) [code = 10433547] Future Scheduled 2020-10-17 DM Foot Exam (Yearly) [facility] Test 00:00:00 [code = DM Foot Exam (Yearly)] Future Scheduled 2020-09-23 Screening for malignant [facility] Test 00:00:00 neoplasm of colon (procedure) [code = 899013732] Future Scheduled 2020-09-23 Screening for malignant [facility] Test 00:00:00 neoplasm of colon (procedure) [code = 795643486] Future Scheduled 2020-09-19 DM Retinal Exam [facility] 00:00:00 (Yearly) [code = DM Retinal Exam (Yearly)] Diagnostic Test 2019-12-06 CT Abd Renal Protocol Uni versity of Pending 00:00:00 w/wo IV contrast Ean Ring cians 80471-67 [code = 66237-70] Diagnostic Test 2019-12-06 CT Abd Renal Protocol Uni versity of Pending 00:00:00 w/wo IV contrast Ean Physi amor 59869-54 [code = 98357-51] Diagnostic Test 2019-12-06 CT Abd Renal Protocol Uni versity of Pending 00:00:00 w/wo IV contrast Ean Physi thorns 39574-19 [code = 18897-19] Diagnostic Test 2019 [UTP] Neuro - [facility] of Pending 00:00:00 Interventional [place] Physici ans Radiology [code = [UTP] Neuro - Interventional Radiology] Diagnostic Test 2019 [UTP] Neuro - [facility] of Pending 00:00:00 Interventional [place] Physici ans Radiology [code = [UTP] Neuro - Interventional Radiology] Diagnostic Test 2019-08-18 [L] BMP8+eGFR [code = Uni versity of Pending 00:00:00 [L] BMP8+eGFR] [facility] 2019-08-18 [L] Vitamin D, [facility] Pending 00:00:00 25-Hydroxy, Total - [place] Ph ysicians [facility] [code = [L] Vitamin D, 25-Hydroxy, Total - [facility]] Diagnostic Test 2019-08-18 [QL] CBC (INCLUDES Unive rsity of Pending 00:00:00 DIFF/PLT) [code = [QL] [place] [facility] CBC (INCLUDES DIFF/PLT)] Diagnostic Test 2019-08-18 [QL] LIPID PANEL [code U niversity of Pending 00:00:00 = [QL] LIPID PANEL] [place] P hysicians Diagnostic Test 2019-08-18 [LH] TSH+Free T4 [code Un iversity of Pending 00:00:00 = [LH] TSH+Free T4] [place] [facility] Diagnostic Test 2019-08-18 [L] BMP8+eGFR [code = Uni versity of Pending 00:00:00 [L] BMP8+eGFR] [facility] 2019-08-18 [L] Vitamin D, [facility] Pending 00:00:00 25-Hydroxy, Total - [place] Ph ysicians [facility] [code = [L] Vitamin D, 25-Hydroxy, Total - [facility]] Diagnostic Test 2019-08-18 [QLH] CBC (INCLUDES Unive rsity of Pending 00:00:00 DIFF/PLT) [code = [QLH] [place] [facility] CBC (INCLUDES DIFF/PLT)] Diagnostic Test 2019-08-18 [QLH] LIPID PANEL [code U niversity of Pending 00:00:00 = [QL] LIPID PANEL] [place] P [facility]ys[facility] Diagnostic Test 2019-08-18 [LH] TSH+Free T4 [code Un iversity of Pending 00:00:00 = [LH] TSH+Free T4] [place] [facility] Diagnostic Test 2019-07-02 [N] 2D Echo complete, Uni versity of Pending 00:00:00 with Doppler 90577 [place] [facility] [code = [N] 2D Echo complete, with Doppler 31902] Diagnostic Test 2019-07-02 [N] 2D Echo complete, Uni versity of Pending 00:00:00 with Doppler 34807 [place] [facility]icians [code = [N] 2D Echo complete, with Doppler 57233] Future Scheduled 2002 COLONOSCOPY SCREENING [place] [facility] Test 00:00:00 [code = COLONOSCOPY SCREENING] Future Scheduled 2002 SHINGLES VACCINES (#1) [place] [facility] Test 00:00:00 [code = SHINGLES VACCINES (#1)] Future Scheduled 2002 Screening for malignant [facility] Test 00:00:00 neoplasm of colon (procedure) [code = 847062932] Future Scheduled 2002 Screening for malignant [facility] Test 00:00:00 neoplasm of colon (procedure) [code = 919898726] Future Scheduled 2002 Screening for malignant [facility] Test 00:00:00 neoplasm of colon (procedure) [code = 390166879] Future Scheduled 1970 Hepatitis C screening [place] [facility] Test 00:00:00 (procedure) [code = 365622977] Future Scheduled 1962 DIABETES: RETINAL EYE [place] [facility] Test 00:00:00 EXAM [code = DIABETES: RETINAL EYE EXAM] Future Scheduled 1962 DIABETIC FOOT EXAM [place] [facility] Test 00:00:00 [code = DIABETIC FOOT EXAM] Future Scheduled 1962 URINE MICROALBUMIN [place] [facility] 00:00:00 [code = URINE MICROALBUMIN] Future Scheduled 1958 65+ PNEUMOCOCCAL [facility] Test 00:00:00 VACCINE (1 of 2 - PPSV23) [code = 65+ PNEUMOCOCCAL VACCINE (1 of 2 - PPSV23)] Encounters Start End Encounter Admission Attending Care Care Encounter Source Date/Time Date/Time Type Type Clinicians Facility Department ID 2021-02-[address] [facility] [id number] [place] 14:58:10 [facility] 2021-02-[address] [facility] [id number] [place] 13:47:49 [facility] 2021-02-14 Outpatient BOOTH, [facility] [id number] [place] 10:07:57 [facility] 2021-02-[address] [facility] [id number] [place] 09:33:38 [facility] 2021-01-[address] [facility] [id number] [place] 11:15:57 [facility] 2021-01-23 Outpatient BOOTH, [facility] [id number] [place] 15:14:06 [facility] 2021-01-19 Outpatient WICAMILLAEL, [facility] [id number] [place] 03:50:25 [facility] 2021-01-19 Outpatient MARTIN, [facility] [id number] [place] 03:50:25 [facility] 2021-01-19 Outpatient CAMACHO, [facility] [id number] [place] 03:50:25 [facility] 2021-01-19 Outpatient BOOTH, [facility] [id number] [place] 03:50:25 [facility] 2021-01-[address] [facility] [id number] [place] 03:50:25 [facility] 2020-10-01 Inpatient E [facility] MED [id number] MHS W 19:37:00 2020-09-26 Inpatient E [facility] MED [id number] MHS W 23:28:00 2020-01-06 Outpatient MHFB ZECHARIAH 7515 MH FB 16:46:40 2019-11-02 Outpatient [facility] CAR [id number] MH HH 10:09:26 2019-05-11 Inpatient MHH URO [id number] MHH H 05:45:00 2018-10-08 Inpatient [facility] URO [id number] H arris 00:00:00 Health 2021-03-04 2021-03-03 Inpatient E M[facility] MED [id number] MHSW 01:36:00 21:11:00 2021-02-28 2021-02-28 Office Carlos Post REYES [id number] 13:47:43 14:58:20 Visit JESSE [id number] MEDICAL [id number] [facility] [id number] 2021-02-14 2021-02-14 RefREYES Garner [id number] 00:00:00 00:00:00 Renetta GERARD [id number] MEDICAL [id number] [facility] [id number] 2021-02-13 2021-02-13 Office REYES Booth [id number] 15:44:25 15:59:25 Visit Heri BRAXTONJONATHON [id number] MEDICAL [id number] [facility] [id number] 2021-02-07 2021-02-07 Office REYES Meade [facility] 4 [id number] 09:34:14 11:28:45 Visit Kim [id number] [id number] 1 2021-02-07 2021-02-07 Orders REYES Meade [facility] 4 [id number] 00:00:00 00:00:00 Only Kim [id number] [id number] 1 2021-01-29 2021-01-29 Orders REYES Cano [id number] 00:00:00 00:00:00 Only Tova GERARD [id number] MEDICAL 9.2.7.2.686 [facility] [id number] 2021-01-23 2021-01-23 Office REYES Booth [id number] 13:32:55 15:14:05 Visit Heri GERARD [id number] MEDICAL [id number] [facility] [id number] 2021-01-23 2021-01-23 Orders Leobardo [facility] 4 [id number] 00:00:00 00:00:00 Only Heri [id number] [id number] 1 2021-01-22 2021-01-22 Abstract Leobardo [facility] 4 1.2.840.114 [id number] 00:00:00 00:00:00 Heri [id number] [id number] 1 2021-01-14 2021-01-14 AppointREYES Davis [facility] [id number] Univers 15:00:00 15:00:00 t; RENETTA CAMACHO Healthy ity of [place] [facility] Jesse Physici ans 2021-01-10 2021-01-10 [facility]patient [facility] [id number] [place] [address] 00:00:00 00:00:[address] 2020-12-27 2020-12-27 AppointREYES Salgado [facility] [id number] Univers 13:30:00 13:30:00 t; CARLOS POST M.D. i ty of [facility] Ean Grant Physici ans 2020-12-18 2020-12-18 AppointREYES Rothman [facility] [id number] Univers 10:30:00 10:30:00 t; KARIE ROWE M.D. [facility] ity of [facility] Juanita Rogers Physici ans 2020-12-17 2020-12-17 Appointmen REYES QUINONES [facility] 73 [id number] Univers 10:00:00 10:00:00 t; Juanita VILLALOBOS Healthy it y [facility] Jesse VILLALOBOS M.D. ans 2020-12-10 2020-12-10 Appointmen REYES CAMACHO [facility] [id number] Univers 09:45:00 09:45:00 t; RENETTA CAMACHO Healthy ity of [place] [facility] Jesse Morse ans 2020-11-02 2020-11-02 Emergency YURIDIA, [facility] [id number] [place] 00:00:00 00:00:00 ISAURO Sanchez [facility] 2020-10-17 2020-10-17 Inpatient E [facility] MED [id number] [facility] 03:28:00 01:10:00 2020-10-16 2020-10-16 Outpatient JOANNE LEE [facility] [id number] [place] 13:20:03 13:46:38 Health 2020-10-15 2020-10-15 AppointREYES Mahoney [facility] 71 [id number] Univers 10:20:00 10:20:00 t; Juanita VILLALOBOS Healthy it [facility] Jesse VILLALOBOS M.D. ans 2020-09-17 2020-09-17 REYES Rico [facility] [id number] Univers 09:00:00 09:00:00 t; Juanita VILLALOBOS Healthy it y [facility] Jesse VILLALOBOS M.D. ans 2020-09-10 2020-09-10 REYES Newton [facility] [id number] Univers 08:45:00 08:45:00 t; KARIE ROW[facility]. [facility] 2020-08-17 2020-08-17 REYES Newton [facility] [id number] Univers 10:00:00 10:00:00 t; KARIE ROWE M.D. [facility] ity [facility] ER[facility] Rogers Physici ans 2020-06-19 2020-06-19 REYES Santos UTP [id number] Univers 10:15:00 10:15:00 t; Estrella LIRIANO M.D. [place] STEVEN, Physici M.D. ans 2020-06-19 2020-06-19 REYES Santos [facility] [id number] Univers 10:15:00 10:15:00 t; Estrella LIRIANO M.D. [place] STEVEN, Physici M.D. ans 2020-05-14 2020-05-14 [facility]IE [facility] Plastic [id number] Univers 09:20:00 09:20:00 t; Juanita VILLALOBOS Surgery - ity of [facility] SIMBO, Medical Physici MFlorecita Center ans 2020-05-14 2020-05-14 Appointmen REYES ROWE Multispecia [id number] Univers 08:15:00 08:15:00 t; KARIE ROWE M.D. lty - ity of Jesse TIWARI M.D. Physici ans 2020-05-07 2020-05-07 [facility] [place]IE [place] [address] [id number] Univers 08:40:00 08:40:00 t; Juanita VILLALOBOS Healthy it y of [place], [facility] Physicmiguelito Grant ans 2020-04-30 2020-04-30 [facility] STACIE [facility] [id number] Univers 09:20:00 09:20:00 t; Juanita VILLALOBOS Healthy it y of [place], [facility] Physicmiguelito Grant ans 2020-04-05 2020-04-05 [facility] MICHEL [facility] [id number] Univers 14:30:00 14:30:00 t; RENETTA CAMACHO, Healthy ity of [place], [facility] Physici ans 2020-04-02 2020-04-02 [facility] STACIE [facility] [id number] Univers 10:40:00 10:40:00 t; Juanita VILLALOBOS it y of [place], [place] SIMBO, Physici MFlorecita ans 2020-03-26 2020-03-26 [facility] STACIE [facility] UTP [id number] Univers 10:00:00 10:00:00 t; Juanita VILLALOBOS it y of [place], [place] SIMBO, Physici MDaraDDara ans 2020-03-12 2020-03-12 [facility] STACIE [facility] UTP [id number] Univers 10:40:00 10:40:00 t; Juanita VILLALOBOS it y of [place], [place] Mini VILLALOBOS M.D. ans 2020-01-20 2020-01-20 REYES [facility] [id number] Univers 13:30:00 13:30:00 t; RENETTA CAMACHO, Healthy ity of [place] [facility] Aging [facility] Physici ans 2020-01-02 2020-01-02 AppointREYES Mahoney Comprehensi 6 [id number] Univers 10:00:00 10:00:00 t; Juanita VILLALOBOS ve Sickle ity of [facility] [place] Mini VILLALOBOS M.D. ans 2019-12-06 2019-12-06 REYES Santos Urology - [id number] Univers 10:15:00 10:15:00 t; HERI, Ean ity of Juanita YATES [facility] Physicmiguelito Grant ans 2019-12-05 2019-12-05 REYES Newton Multispecia [id number] Univers 09:00:00 09:00:00 t; KARIE ROWE M.D. lty - ity of KARIEJesse M.D. Physici ans 2019 2019 REYES [facility] [id number] Univers 09:30:00 09:30:00 t; ODALIS, Surgery - ity of [place] RODRIGUEZ [facility] ODALIS, Medical Physici D.ODara Rogers ans 2019-11-18 2019-11-18 REYES [facility] [id number] Univers 08:15:00 08:15:00 t; RENETTA CAMACHO, Healthy ity of [place], [facility] ans 2019-11-04 2019-11-04 Outpatient E [facility] MED [id number] SW 15:03:00 15:03:00 2019-11-04 2019-11-04 REYES [facility] [id number] Univers 15:00:00 15:00:00 t; RENETTA CAMACHO, Healthy ity of [place] [facility] Physici ans 2019-10-27 2019-10-27 Outpatient [facility] CAR [id number] [facility] 12:47:00 12:47:00 2019-10-25 2019-10-25 REYES Chaudhry [facility] [id number] Univers 10:00:00 10:00:00 t; jeffrey JACOBO D.O. [place] Mini JACOBO D.O. ans 2019-10-17 2019-10-17 Outpatient [facility] [id number] [place] 00:00:00 00:00:00 Health 2019-10-17 2019-10-17 Outpatient [facility] [id number] [place] 00:00:00 00:00:00 Health 2019-10-06 2019-10-06 Outpatient [facility] [id number] [place] 13:46:32 13:46:32 Health 2019-10-06 2019-10-06 Outpatient [facility] [id number] [place] 00:00:00 00:00:00 Health 2019-10-03 2019-10-03 REYES Rico [place] [id number] [facility] [place] [facility] 09:20:00 09:20:00 t; Juanita VILLALOBOS Healthy it y of Michele QUINONES [facility] Jesse VILLALOBOS M.D. ans 2019-09-23 2019-09-23 Outpatient [facility] MED [id number] [place] 06:48:19 06:48:19 Health 2019-09-23 2019-09-23 Outpatient [facility] [id number] [place] 00:00:00 00:00:00 Health 2019-09-23 2019-09-23 Outpatient [facility] [id number] [place] 00:00:00 00:00:00 Health 2019-09-19 2019-09-19 Outpatient [facility] [id number] [place] 11:36:55 11:36:55 Health 2019-09-19 2019-09-19 Outpatient [facility] [id number] [place] 11:22:15 11:22:15 Health 2019-09-19 2019-09-19 Outpatient [facility] [id number] [place] 10:18:06 10:18:06 Health 2019-09-19 2019-09-19 Outpatient [facility] [id number] [place] 00:00:00 00:00:00 Health 2019-09-16 2019-09-16 Outpatient [facility] MED [id number] [place] 00:00:00 00:00:00 Health 2019-09-15 2019-09-15 Outpatient [facility] [id number] [place] 07:20:14 07:20:14 Health 2019-09-09 2019-09-09 Outpatient [facility] [id number] [place] 00:00:00 00:00:00 Health 2019-09-02 2019-09-02 REYES Edward [facility] [id number] Univers 10:15:00 10:15:00 t; RENETTA CAMACHO Healthy ity of [place] [facility] [place] Physici ans 2019-09-01 2019-09-01 Outpatient [facility] [id number] [place] 00:00:00 00:00:00 Health 2019-08-10 2019-08-10 CARLINE Grey UTP [facility] [id number] [facility] [place] [facility] 10:30:00 10:30:00 t; EDWARDO OLSON Healthy ity of [facility] 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 [place] Physici ans 2019-08-08 2019-08-08 Outpatient [facility] [id number] [place] 15:50:54 15:50:54 Health 2019-08-08 2019-08-08 Outpatient [facility] [id number] [place] 13:08:31 13:08:31 Health 2019-08-04 2019-08-04 Outpatient [facility] [id number] [place] 11:09:05 11:09:05 Health 2019-07-28 2019-07-28 REYES Edward [facility] [id number] Univers 09:15:00 09:15:00 t; RENETTA CAMACHO, ity of [place] [facility] Physici ans 2019-07-19 2019-07-19 Outpatient [facility] [id number] [place] 14:07:46 14:07:46 Health 2019-07-19 2019-07-19 Outpatient [facility] [id number] [place] 00:00:00 00:00:00 Health 2019-07-14 2019-07-14 Outpatient [facility] [id number] [place] 11:02:02 11:02:02 Health 2019-07-11 2019-07-11 REYES [place] Multispec[facility] 5 [id number] Univers 14:00:00 14:00:00 t; ECHO lty - The ity of [place], [place] [address] Physici ans 2019-06-29 2019-06-29 Appointmen CARLINE OLSON [facility] [id number] Univers 13:00:00 13:00:00 t; WESLEY, 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 Healthy ity of CARLINE, Aging - [place] 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 ans 2019-06-23 2019-06-23 Outpatient [facility] [id number] [place] 14:17:43 14:17:43 Health 2019-06-23 2019-06-23 Outpatient [facility] [id number] [place] 13:19:37 13:19:37 Health 2019-06-23 2019-06-23 Outpatient [facility] [id number] [place] 00:00:00 00:00:00 Health 2019-06-07 2019-06-07 Selena YATES [facility] Urology - [id number] Univers 09:45:00 09:45:00 t; Ean LIRIANO M.D. [facility] Davie LIRIANO M.D. [facility] 2019-05-26 2019-05-26 Outpatient [facility] [id number] [place] 11:21:39 11:21:39 Health 2019-05-11 2019-05-11 Selena YATES [facility] [id number] Univers 07:30:00 07:30:00 t; Estrella LIRIANO M.D. [place] Mini LIRIANO M.D. [facility] 2019-04-18 2019-04-18 Outpatient [facility] [id number] [place] 14:43:38 14:43:38 Health 2019-04-18 2019-04-18 Outpatient [facility] [id number] [place] 12:55:11 12:55:11 Health 2019-04-18 2019-04-18 Outpatient [facility] [id number] [place] 00:00:00 00:00:00 Health 2019-04-14 2019-04-14 Outpatient [facility] [id number] [place] 13:55:14 13:55:14 Health 2019-04-13 2019-04-13 Outpatient [facility] [id number] [place] 00:00:00 00:00:00 Health 2019-03-28 2019-03-28 Outpatient [facility] [id number] 09:15:00 12:45:50 2019-03-28 2019-03-28 REYES Edward [facility] [id number] [facility] [place] [facility] 09:15:00 09:15:00 t; RENETTA CAMACHO Healthy ity of [place] [facility] Jesse Morse ans 2019-03-18 2019-03-18 Outpatient [facility] [id number] [place] 16:39:56 16:39:56 Health 2019-03-18 2019-03-18 Outpatient [facility] [id number] [place] 14:33:06 14:33:06 Health 2019-03-18 2019-03-18 Outpatient [facility] [id number] [place] 00:00:00 00:00:00 Health 2019-03-18 2019-03-18 Outpatient [facility] [id number] [place] 00:00:00 00:00:00 Health 2019-03-15 2019-03-15 Outpatient [facility] [id number] [place] 00:00:00 00:00:00 Health 2019-03-08 2019-03-08 REYES Santos Urology - [id number] Univers 15:00:00 15:00:00 t; Ean LIRIANO M.D. [facility] Davie LIRIANO M.D. ans 2019-02-15 2019-02-15 Outpatient [facility] [id number] [place] 11:14:29 11:14:29 Health 2019-02-15 2019-02-15 Outpatient [facility] [id number] [place] 09:58:52 09:58:52 Health 2019-02-15 2019-02-15 Outpatient [facility] [id number] [place] 00:00:00 00:00:00 Health 2019-02-11 2019-02-11 Outpatient [facility] [id number] [place] 14:29:48 14:29:48 Health 2019-02-01 2019-02-01 REYES Chaudhry [facility] [id number] Univers 09:30:00 09:30:00 t; Ginna JACOBO D.O. [place] Mini JACOBO D.O. [facility] 2019-01-27 2019-01-27 Outpatient [facility] [id number] [place] 08:03:16 08:03:16 Health 2019-01-26 2019-01-26 Outpatient [facility] [id number] [place] 07:49:13 07:49:13 Health 2019-01-19 2019-01-19 Outpatient [facility] ZECHARIAH [id number] [facility] 09:13:00 09:13:00 2019-01-19 2019-01-19 REYES Chaudhry [id number] [employer] 09:00:00 09:00:00 t; jeffrey JACOBO D.O. [place] Mini JACOBO D.O. [facility] 2019-01-19 2019-01-19 Outpatient [facility] [id number] [place] 00:00:00 00:00:00 Health 2019-01-17 2019-01-17 Outpatient [facility] [id number] [place] 11:56:18 11:56:18 Health 2019-01-17 2019-01-17 Outpatient [facility] [id number] [place] 10:55:26 10:55:26 Health 2018-12-27 2018-12-27 Outpatient [facility] [id number] [place] 14:38:53 14:38:53 Health 2018-12-27 2018-12-27 Outpatient [facility] [id number] [place] 00:00:00 00:00:00 Health 2018-12-15 2018-12-15 Outpatient [facility] [id number] [place] 00:00:00 00:00:00 Health 2018-12-13 2018-12-13 Outpatient [facility] [id number] [place] 00:00:00 00:00:00 Health 2018-12-13 2018-12-13 Outpatient [facility] [id number] [place] 00:00:00 00:00:00 [facility] 2018-11-25 2018-11-25 REYES Edward [id number] Univers 08:15:00 08:15:00 t; RENETTA CAMACHO ity of MAUREEN, GNP-BC [place] SELIN Morse [facility] 2018-11-15 2018-11-15 Outpatient [facility] [id number] [place] 10:43:56 10:43:56 Health 2018-11-09 2018-11-09 Outpatient [facility] [id number] [place] 10:09:07 10:09:07 Health 2018-11-05 2018-11-05 Outpatient [facility] [id number] [place] 00:00:00 00:00:00 Health 2018-10-19 2018-10-19 REYES Chaudhry UTP [id number] Univers 11:30:00 11:30:00 t; jeffrey JACOBO D.O. [place] Mini JACOBO D.O. ans 2018-10-11 2018-10-11 Outpatient [facility] [id number] [place] 10:35:13 10:35:13 Health 2018-10-08 2018-10-08 Outpatient [facility] [id number] [place] 10:40:35 10:40:35 Health 2018-09-28 2018-09-28 AppointREYES Turner UTP [id number] Univers 13:00:00 13:00:00 t; MACARIO GRIJALVA ity of SHITIJ, M.D. [place] M.D. 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 [place] M.D. 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 [place] ODALIS Physici [place] ans 2018-08-09 2018-08-09 [facility] [id number] [place] 14:10:43 14:10:43 Health 2018-08-02 2018-08-02 Appointmen VALENTINE, UTP UTP [id number] Univers 13:00:00 13:00:00 t; MACARIO GRIJALVA, Andie M.D. [place] Juanita Physici ans 2018-07-29 2018-07-29 Appointmen RICE, UTP UTP [id number] Univers 10:00:00 10:00:00 t; RICE, LA'MERLE, ity of [place], [facility] Physici ans 2018-07-29 2018-07-29 Appointmen MICHEL, UTP UTP [id number] Univers 08:15:00 08:15:00 t; RENETTA CAMACHO, ity of RENETTA, P-BC 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 [place] Mini JACOBO D.O. ans 2018-05-11 2018-05-11 Appointrachel JENNIFER [facility] UTP [id number] Univers 11:15:00 11:15:00 t; jeffrey JACOBO D.O. [place] Mini JACOBO D.O. ans 2018-04-29 2018-04-29 Appointrachel MICHEL [facility] [id number] Univers 08:45:00 08:45:00 t; RENETTA CAMACHO ity MITCH JACKSON-BC [facility]- Mini [facility] 2018-04-26 2018-04-26 Outpatient [facility] [id number] [place] 08:10:49 08:10:49 Health Results Test Test Test Results Result Source Description Time Comments Comments DEBRIDEMENT Itzel Bansal MD [place] [id number] 01/10/2021 12:14 [facility] 09:30:00 PMDEBRIDEMENTPerformed by: Itzel Bansal MDAuthorized by: Itzel Bansal MD Associated Wounds: Wound Pressure Injury Sacrum Consent: Consent obtained: Verbal Consent given by: Patient Risks discussed: Yes Lawrence Protocol: Procedure explained and questions answered to patient or proxy's satisfaction: Yes Relevant documents present and verified: Yes Test results available and properly labeled: Yes Imaging studies available: Yes Required blood products, implants, devices, and special equipment available: Yes Site/side marked: Yes Immediately prior to procedure a time out was called: Yes A time out verified correct 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, 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, 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, 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, and site/side marked as requiredTime out performed at: 01/10/2021 10:22 AMDebridement Details: Performed by: Physician Type: Selective Level: subcutaneous tissue Location: trunk/arms/legs Pain control: 2% lidocaine Procedural pain: 0 Wound Cluster: no Length (cm): 2 Width (cm): 4 Depth (cm): 0.7 Percent Debrided (%): 100 Calc Area (cm^2): 8 Calc Area Debrided (cm^2): 8 Calc Vol (cm^3): 5.6 Post debridement images captured: Yes Tissue and other material debrided: epidermis and dermis Devitalized tissue debrided: slough, biofilm and callus Instrument: Curette Hemostasis obtained with: Pressure Post-procedural pain: 1 Patient tolerance of procedure: Procedure tolerated well [O] Hemoglobin A1c (in office) 2020-12-18 08:45:00 Test Item Value Reference Range Interpretation Comme nts HEMOGLOBIN A1c; Normal (test code = 4548-4) 6.2 N [facility]2020-12-18 08:45:00 Test Item Value Reference Range Interpretation Comments Glucose POC Lifescan (test code = 162 Glucose POC Lifescan) [facility]] BASIC METABOLIC PANEL W/EGFR 2020-12-17 11:55:00 Test Item Value Reference Range Interpretation Comments GLUCOSE; Above 214 mg/dl 65-99 Fasting refer ence High Threshold interval For someone (test code = without known d yumi, 1547-9) a glucosevalue >125 mg/dL indicates that they may havedi abetes and this should be confirmed with afollow-up test . UREA NITROGEN 32 mg/dl 7-25 (BUN) (test code = UREA NITROGEN (BUN)) CREATININE (test 2.34 mg/dl 0.70-1.25 For patient s >49 years code = CREATININE) of age, t he reference limitfor Creati nine is approximately 1 3% higher for peopleidentifie d as -Mae n. eGFR NON-AFR. 28 See_Comment [Automated me ssage] CENTRAL AFRICAN (test {ML/MIN/1.7} The system ich code = eGFR generated this result NON-AFR. CENTRAL AFRICAN) transmitt ed reference range: > OR = 6 0. The reference range was not used to interpr et this result as normal/abnormal . eGFR 32 See_Comment [Automated mes kristina] CENTRAL AFRICAN (test {ML/MIN/1.7} The system ich code = eGFR generated this result ) transmitte d reference range: > OR = 6 0. The reference range was not used to interpr et this result as normal/abnormal . BUN/CREATININE 14 {CALC} 6-22 N RATIO (test code = BUN/CREATININE RATIO) SODIUM (test code 139 mmol/L 135-146 N = SODIUM) POTASSIUM (test 4.9 mmol/L 3.5-5.3 N code = POTASSIUM) CHLORIDE (test 104 mmol/L 98-110 N code = CHLORIDE) CARBON DIOXIDE 26 mmol/L 20-32 N (test code = CARBON DIOXIDE) CALCIUM (test code 9.1 mg/dl 8.6-10.3 N = CALCIUM) [facility] 12 [id number] 17:21:44 Test Item Value Reference Range Interpretation Comments Ventricular rate (test 60 code = 253) Atrial rate (test code 44 = 255) QRSD interval (test 102 code = 260) QT interval (test code 308 = 264) QTC interval (test code 308 = 265) QRS axis 1 (test code = 96 268) T wave axis (test code -15 = 270) EKG impression (test Electronic atrial code = 273) pacemaker-Rightward axis-Nonspecific ST and T wave abnormality-Abnormal ECG-In automated comparison with ECG of 08-SEP-2013 15:11,-Significant changes have occurred-Electronicall y Signed By Jose R Cedeño MD (2004) on 11/03/2020 5:21:38 PM [facility] ED Preliminary Interpretation - Not an [id number] 19:20:05Isauro Greene III, MD 11/03/2020 2:59 [facility] Preliminary Interpretation - Not an OrderPerformed by: Jose Gonzalez, PAAuthorized by: Isauro Greene III, MD ECG reviewed by ED Physician in the absence of a freight brake operator: yes Previous ECG: Previous ECG: UnavailableInterpretation: Interpretation: non-specific Rate: ECG rate: 60 ECG rate assessment: normal Rhythm: Rhythm:paced QRS: QRS axis: NormalConduction: Conduction: normal ST segments: ST segments: NormalHouston MethodistGlucose (Point of Care In Office)2020-08-17 11:22:00 Test Item Value Reference Range Interpretation Comments Glucose POC Lifescan (test code = 441 Glucose POC Lifescan) [facility][O] Hemoglobin A1c (in office)2020-08-17 11:21:00 Test Item Value Reference Range Interpretation Comments HEMOGLOBIN A1c; Above High Threshold 7.8 (test code = 4548-4) [facility][QL] LIPID [id number] 09:41:00 Test Item Value Reference Range Interpretation Comments CHOLESTEROL, TOTAL; 130 mg/dl <200 N Normal (test code = 2093-3) HDL CHOLESTEROL; 33 mg/dl > OR = 40 Below Low Threshold (test code = 2085-9) TRIGLYCERIDES; 118 mg/dl <150 N Normal (test code = 2571-8) LDL-CHOLESTEROL; 77 {MG/DL N Reference r kelly: Normal (test code = GERTRUDE} <100 Clifford irable range 02905-4) <100 mg/dL for primary prevent ion; <70 mg/dL for patients with C HD or diabetic patien ts with > or = 2 C HD risk factors. L DL-C is now calculat ed using the Brie calculation, wh ich is a validated novel method providin g better accuracy than the Friedewald equation in the estimation of L DL-C. Ronaldo SS et al . CHRISTOPHER. 2013;310( 19): 1213-0926 ([email or web address]://educati [email or web address]/f aq/QTF830) CHOL/HDLC RATIO 3.9 {CALC} <5.0 N (test code = CHOL/HDLC RATIO) NON HDL CHOLESTEROL 97 {MG/DL <130 N For sabina ents with (test code = NON HDL GERTRUDE} diabete s plus 1 CHOLESTEROL) major ASCVD ris k factor, treatin g to a non-HDL-C goa l of <100 mg/dL (LDL -C of <70 mg/dL) is considered a therapeutic opt ion. [facility][QL] CMP [id number] 09:41:00 Test Item Value Reference Range Interpretation Comments GLUCOSE; Above High 326 mg/dl 65-99 Fasting reference Threshold (test interval For someone code = 1547-9) without known diabetes, a glucosevalue >125 mg/dL indicates that they may havedi abetes and this should be confirmed with afollow-up test . UREA NITROGEN (BUN) 26 mg/dl 7-25 (test code = UREA NITROGEN (BUN)) CREATININE (test 1.85 mg/dl 0.70-1.25 For patient s >49 years code = CREATININE) of age, t he reference limitfor Creati nine is approximately 1 3% higher for peopleidentifie d as -Mae n. eGFR NON-AFR. 37 > OR = 60 CENTRAL AFRICAN (test code {ML/MIN/1.7} = eGFR NON-AFR. CENTRAL AFRICAN) eGFR 43 > OR = 60 CENTRAL AFRICAN (test code {ML/MIN/1.7} = eGFR ) BUN/CREATININE 14 {CALC} 6-22 N RATIO (test code = BUN/CREATININE RATIO) SODIUM (test code = 134 mmol/L 135-146 SODIUM) POTASSIUM (test 4.6 mmol/L 3.5-5.3 N code = POTASSIUM) CHLORIDE (test code 96 mmol/L 98-110 = CHLORIDE) CARBON DIOXIDE 28 mmol/L 20-32 N (test code = CARBON DIOXIDE) CALCIUM (test code 9.1 mg/dl 8.6-10.3 N = CALCIUM) PROTEIN, TOTAL 6.5 g/dl 6.1-8.1 N (test code = PROTEIN, TOTAL) ALBUMIN (test code 4.1 g/dl 3.6-5.1 N = ALBUMIN) GLOBULIN (test code 2.4 {G/DL 1.9-3.7 N = GLOBULIN) CALC} ALBUMIN/GLOBULIN 1.7 {CALC} 1.0-2.5 N RATIO (test code = ALBUMIN/GLOBULIN RATIO) BILIRUBIN, TOTAL; 0.4 mg/dl 0.2-1.2 N Normal (test code = 63257-9) ALKALINE 84 u/l 35-144 N PHOSPHATASE (test code = ALKALINE PHOSPHATASE) AST; Normal (test 25 u/l 10-35 N code = 1916-6) ALT; Normal (test 14 u/l 9-46 N code = 1742-6) [facility][QL] PROTHROMBIN [id number] 09:41:00 Test Item Value Reference Range Interpretation Comments INR (test code = 1.1 N Reference R kelly INR) 0.9-1.1Moderate -intensity Warfarin Therap y 2.0-3.0Higher-i ntensity Warfarin Therap y 3.0-4.0 PT (test code = 11.4 {sec} 9.0-11.5 N For more inf ormation on PT) this test, go to:http://educa tion.[employer] /faq/FAQ10 4 [facility][QL] CBC (INCLUDES DIFF/PLT)2020-06-12 09:41:00 Test Item Value Reference Range Interpretation Comments WHITE BLOOD CELL COUNT 4.0 {Thousand/u} 3.8-10.8 N (test code = WHITE BLOOD CELL COUNT) RED BLOOD CELL COUNT (test 3.73 {Million/uL} 4.20-5.80 code = RED BLOOD CELL COUNT) HEMOGLOBIN; Below Low 9.7 g/dl 13.2-17.1 Threshold (test code = 66963-0) HEMATOCRIT; Below Low 30.7 % 38.5-50.0 Threshold (test code = 4544-3) MCV; Normal (test code = 82.3 fL 80.0-100.0 N 787-2) MCHC; Below Low Threshold 31.6 g/dl 32.0-36.0 (test code = 98535-6) RDW; Normal (test code = 14.1 % 11.0-15.0 N 788-0) PLATELET COUNT; Below Low 132 {Thousand/u} 140-400 Threshold (test code = 777-3) MPV; Above High Threshold 12.7 fL 7.5-12.5 (test code = 96221-3) ABSOLUTE NEUTROPHILS (test 2756 {cells/uL} 9523-3481 N code = ABSOLUTE NEUTROPHILS) ABSOLUTE LYMPHOCYTES (test 652 {cells/uL} 850-3900 code = ABSOLUTE LYMPHOCYTES) ABSOLUTE MONOCYTES (test 360 {cells/uL} 200-950 N code = ABSOLUTE MONOCYTES) ABSOLUTE EOSINOPHILS (test 192 {cells/uL} 15-500 N code = ABSOLUTE EOSINOPHILS) ABSOLUTE BASOPHILS (test 40 {cells/uL} 0-200 N code = ABSOLUTE BASOPHILS) NEUTROPHILS (test code = 68.9 % N NEUTROPHILS) LYMPHOCYTES (test code = 16.3 % N LYMPHOCYTES) MONOCYTES; Normal (test 9.0 % N code = 76382-3) EOSINOPHILS; Normal (test 4.8 % N code = 07194-4) BASOPHILS; Normal (test 1.0 % N code = 00421-2) [facility][O] Hemoglobin A1c (in office)2020-05-14 13:07:00 Test Item Value Reference Range Interpretation Comments HEMOGLOBIN A1c; Above High Threshold 7.4 (test code = 4548-4) [facility])2020-05-14 13:07:00 Test Item Value Reference Range Interpretation Comments Glucose POC Lifescan (test code = 345 Glucose POC Lifescan) [facility][QL] COMPREHENSIVE METABOLIC PANEL W/O eGFR 2020-01-06 00:00:00 Test Item Value Reference Range Interpretation Comments GLUCOSE; Above 257 mg/dl 65-99 Fasting refer ence High Threshold interval For someone (test code = without known d yumi, 1547-9) a glucosevalue >125 mg/dL indicates that they may havedi abetes and this should be confirmed with afollow-up test . UREA NITROGEN 26 mg/dl 7-25 (BUN) (test code = UREA NITROGEN (BUN)) CREATININE (test 1.85 mg/dl 0.70-1.25 For patient s >49 years code = CREATININE) of age, t he reference limitfor Creati nine is approximately 1 3% higher for peopleidentifie d as -Mae n. BUN/CREATININE 14 {CALC} 6-22 N RATIO (test code = BUN/CREATININE RATIO) SODIUM (test code 136 mmol/L 135-146 N = SODIUM) POTASSIUM (test 5.7 mmol/L 3.5-5.3 code = POTASSIUM) CHLORIDE (test 105 mmol/L 98-110 N code = CHLORIDE) CARBON DIOXIDE 24 mmol/L 20-32 N (test code = CARBON DIOXIDE) CALCIUM (test code 9.0 mg/dl 8.6-10.3 N = CALCIUM) PROTEIN, TOTAL 6.5 g/dl 6.1-8.1 N (test code = PROTEIN, TOTAL) ALBUMIN (test code 4.1 g/dl 3.6-5.1 N = ALBUMIN) GLOBULIN (test 2.4 {G/DL 1.9-3.7 N code = GLOBULIN) CALC} ALBUMIN/GLOBULIN 1.7 {CALC} 1.0-2.5 N RATIO (test code = ALBUMIN/GLOBULIN RATIO) BILIRUBIN, TOTAL; 0.5 mg/dl 0.2-1.2 N Normal (test code = 34908-4) ALKALINE 72 u/l 35-144 N PHSPHATASE (test code = ALKALINE PHSPHATASE) AST; Normal (test 23 u/l 10-35 N code = 1916-6) ALT; Normal (test 22 u/l 9-46 N code = 1742-6) [facility]] CMP [id number] 15:25:01 Test Item Value Reference Range Interpretation Comments Sodium Level 143 {mEq/l} 135-145 (test code = 2951-2) Potassium Level 4.5 {mEq/l} 3.5-5.1 (test code = 2823-3) Chloride Level 109 {mEq/l} 95-109 (test code = 2075-0) Carbon Dioxide 24 {mEq/l} 24-32 (test code = 8-9) AGAP (test code = 14.5 {mEq/l} 10.0-20.0 62413-8) Glucose Lvl; 52 mg/dl 70-99 Adult reference range Below Low values reflect the Threshold (test clinical hugo delinesof the code = 2345-7) [place] [employer]. Creatinine Lvl; 2.00 mg/dl 0.50-1.40 Above High Threshold (test code = 2160-0) Blood Urea 25 mg/dl 7-22 Nitrogen; Above High Threshold (test code = 3094-0) BUN/Creatinine 12 6-25 Ratio (test code = 3097-3) Total Protein 6.8 g/dl 6.4-8.4 (test code = 2885-2) Albumin Lvl (test 4.1 g/dl 3.5-5.0 code = 1751-7) Globulin (test 2.7 g/dl 2.7-4.2 code = 51831-5) A/G Ratio (test 1.5 0.7-1.6 code = 1759-0) Calcium Level 9.0 mg/dl 8.5-10.5 Total (test code = 98360-7) ALT (test code = 32 u/l 0-65 1743-4) AST (test code = 34 u/l 0-37 97018-0) Alk Phos (test 82 u/l 39-136 The pediatric reference code = 1783-0) ranges for th is test represent a CLSI-basedtrans ference of the CALIPER gamal abase of pediatric refer ence intervals to eSiemens [place] analyzer (Clinical Biochemistry 46 (2013): 5623-7265). [facility] has not internally validated these reference ranges and therefore they should be used only in e context of a thoroughcl inical assessment. Bili Total (test 0.3 mg/dl 0.2-1.3 code = 1975-2) eGFR (test code = 34 The eGFR i s calculated 42194-6) {ML/MIN/1.7} using the CKD-E PI formula. In mos t young, healthyindividu als the eGFR will be >9 0 mL/min/1.73m2. The eGFR declines with a ge. AneGFR of 60-89 may be normal in some population s, particularly th e elderly, forwhom the CKD -EPI formula has not been extensively alyce idated. Use of the eGFR isnot recommended in the following populations:Ind ividuals with unstable c reatinine concentrations, including patient s and those with seri ous co-morbid conditions.Sabina ents with extremes in mus katherine mass or diet.The gamal a above are obtained fr om the National Kidney Disease Education Progr am(NKDEP) which sheeba mccloud recommends that when the eGFR is used in patientswith ex tremes of body mass index for purposes of carmen g dosing, the eGFR should be multiplied by t he estimated BMI. [facility]] HEMOGLOBIN [id number] 15:25:01 Test Item Value Reference Range Interpretation Comments Hemoglobin A1c; Above High Threshold 8.0 % <=5.6 (test code = 4548-4) [facility]] VITAMIN D, 25-HYDROXY, [id number] 15:25:01 Test Item Value Reference Range Interpretation Comments Vitamin D, 25-OH, 18.0 ng/ml 30.0-100.0 Reference range is based Total (test code on recommen dations in the = Vitamin D, EndocrineSociet y Clinical 25-OH, Total) Practice Guide line (J Clin Endocrinol Jhhqy4879;96:19 11-1930) [facility]] PROBNP, N [id number] 11:25:01 Test Item Value Reference Range Interpretation Comments Pro-Brain Natriuretic Peptide; 3821 pg/ml 0-125 Above High Threshold (test code = 51814-5) [facility]] CMP [id number] 11:25:01 Test Item Value Reference Range Interpretation Comments Sodium Level 140 {mEq/l} 135-145 (test code = 2951-2) Potassium Level 4.6 {mEq/l} 3.5-5.1 (test code = 2823-3) Chloride Level; 110 {mEq/l} 95-109 Above High Threshold (test code = 5-0) Carbon Dioxide; 23 {mEq/l} 24-32 Below Low Threshold (test code = 2027-9) AGAP (test code = 11.6 {mEq/l} 10.0-20.0 84803-2) Glucose Lvl; 64 mg/dl 70-99 Adult reference range Below Low values reflect the Threshold (test clinical hugo delinesof the code = 2345-7) [place] [employer]. Creatinine Lvl; 1.70 mg/dl 0.50-1.40 Above High Threshold (test code = 2160-0) Blood Urea 19 mg/dl 7-22 Nitrogen (test code = 3094-0) BUN/Creatinine 11 6-25 Ratio (test code = 3097-3) Total Protein 6.8 g/dl 6.4-8.4 (test code = 2885-2) Albumin Lvl (test 3.9 g/dl 3.5-5.0 code = 1751-7) Globulin (test 2.9 g/dl 2.7-4.2 code = 41536-5) A/G Ratio (test 1.3 0.7-1.6 code = 1759-0) Calcium Level 8.8 mg/dl 8.5-10.5 Total (test code = 14436-1) AST (test code = 22 u/l 0-37 16272-5) Bili Total (test 0.3 mg/dl 0.2-1.3 code = 1975-2) Alk Phos (test 102 u/l 39-136 The pediatric reference code = 1783-0) ranges for th is test represent a CLSI-basedtrans ference of the CALIPER gamal abase of pediatric refer ence intervals to eSiemens [place] analyzer (Clinical Biochemistry 46 (2013): 2602-6350). [facility] has not internally validated these reference ranges and therefore they should be used only in th e context of a thoroughcl inical assessment. eGFR (test code = 41 The eGFR i s calculated 44734-6) {ML/MIN/1.7} using the CKD-E PI formula. In mos t young, healthyindividu als the eGFR will be >9 0 mL/min/1.73m2. The eGFR declines with a ge. AneGFR of 60-89 may be normal in some population s, particularly th e elderly, forwhom the CKD -EPI formula has not been extensively alyce idated. Use of the eGFR isnot recommended in the following populations:Ind ividuals with unstable c reatinine concentrations, including patient s and those with seri ous co-morbid conditions.Sabina ents with extremes in mus katherine mass or diet.The gamal a above are obtained fr om the National Kidney Disease Education Progr am(NKDEP) which sheeba mccloud recommends that when the eGFR is used in patientswith ex tremes of body mass index for purposes of carmen g dosing, the eGFR should be multiplied by t he estimated BMI. ALT (test code = 29 u/l 0-65 1743-4) [facility]] OCCULT BLOOD, STOOL, [id number] 13:57:01 Test Item Value Reference Range Interpretation Comments Occult Blood Stool (test code = Negative Negative 11653-2) [facility]] CBC (INCLUDES DIFF/PLT)2019-08-18 13:00:01 Test Item Value Reference Range Interpretation Comments WBC; Below Low Threshold (test 3.3 {K/CMM} 3.7-10.4 code = 6690-2) RBC; Below Low Threshold (test 3.79 {M/CMM} 4.70-6.10 code = 789-8) Hgb; Below Low Threshold (test 10.6 g/dl 14.0-18.0 code = 718-7) Hct; Below Low Threshold (test 32.3 % 42.0-54.0 code = 41287-4) MCV (test code = 787-2) 85.2 fL 80.0-94.0 MCH (test code = 785-6) 28.0 pg 27.0-31.0 MCHC (test code = 786-4) 32.9 g/dl 32.0-36.0 RDW; Above High Threshold (test 15.3 % 11.5-14.5 code = 788-0) Platelet; Below Low Threshold 129 {K/CMM} 133-450 (test code = 53173-5) Mean Platelet Volume; Above High 11.2 fL 7.4-10.4 Threshold (test code = 78823-0) [facility]] [id number] 13:00:01 Test Item Value Reference Range Interpretation Comments Segmented Neutrophils (test code 67.3 % 45.0-75.0 = 13567-0) Monocytes (test code = 65351-0) 7.8 % 2.0-12.0 Lymphocytes (test code = 15826-4) 20.8 % 20.0-40.0 Eosinophils (test code = 34688-2) 3.1 % 0.0-4.0 Basophils (test code = 706-2) 1.0 % 0.0-1.0 Segs-Bands # (test code = 2.2 {K/CMM} 1.5-8.1 83183-2) Lymphocytes #; Below Low 0.7 {K/CMM} 1.0-5.5 Threshold (test code = 58036-3) Monocytes # (test code = 75638-4) 0.3 {K/CMM} 0.0-0.8 Eosinophils # (test code = 0.1 {K/CMM} 0.0-0.5 29626-8) [facility]] BASIC METABOLIC PANEL [id number] 13:00:01 Test Item Value Reference Range Interpretation Comments Glucose Lvl; 194 mg/dl 70-99 Adult reference range Above High values reflect the Threshold (test clinical hugo delinesof the code = 2345-7) [employer]. Blood Urea 13 mg/dl 7-22 Nitrogen (test code = 3094-0) Creatinine Lvl 1.40 mg/dl 0.50-1.40 (test code = 2160-0) Sodium Level 139 {mEq/l} 135-145 (test code = 2951-2) Potassium Level 4.5 {mEq/l} 3.5-5.1 (test code = 2823-3) Chloride Level 104 {mEq/l} 95-109 (test code = 2075-0) Carbon Dioxide 27 {mEq/l} 24-32 (test code = 8-9) AGAP (test code = 12.5 {mEq/l} 10.0-20.0 47548-5) Calcium Level 8.6 mg/dl 8.5-10.5 Total (test code = 95033-3) eGFR (test code = 52 The eGFR i s calculated 34231-9) {ML/MIN/1.7} using the CKD-E PI formula. In mos t young, healthyindividu als the eGFR will be >9 0 mL/min/1.73m2. The eGFR declines with a ge. AneGFR of 60-89 may be normal in some population s, particularly th e elderly, forwhom the CKD -EPI formula has not been extensively alyce idated. Use of the eGFR isnot recommended in the following populations:Ind ividuals with unstable c reatinine concentrations, including patient s and those with seri ous co-morbid conditions.Sabina ents with extremes in mus katherine mass or diet.The gamal a above are obtained fr om the National Kidney Disease Education Progr am(NKDEP) which sheeba mcclodu recommends that when the eGFR is used in patientswith ex tremes of body mass index for purposes of carmen g dosing, the eGFR should be multiplied by t he estimated BMI. [facility]] LIPID [id number] 13:00:01 Test Item Value Reference Range Interpretation Comments Chol (test code = 2093-3) 151 mg/dl <=199 Trig (test code = 2571-8) 113 mg/dl <=149 HDL Cholesterol; Below Low 39 mg/dl >=61 Threshold (test code = 2085-9) CHD Risk; Below Low Threshold (test 3.87 4.00-7.30 code = 06420-0) LDL (test code = 68150-5) 89 mg/dl <=99 VLDL (test code = VLDL) 23 [facility][LH] TSH+Free [id number] 13:00:01 Test Item Value Reference Range Interpretation Comments TSH; Above High Threshold 7.510 {uIU/ml} 0.360-3.740 (test code = 43658-2) T4 Free (test code = 3024-7) 1.22 ng/dl 0.76-1.46 [facility][[place] IMM] Vitamin D 25-Hydroxy [id number] 13:00:01 Test Item Value Reference Range Interpretation Comments Vitamin D, 25-OH, 16 ng/ml Reference Range:All Total (test code = Ages: Tar get levels 30 Vitamin D, 25-OH, - 100 Total) Vitamin D2 25-OH (test <1.0 code = Vitamin D2 25-OH) Vitamin D3 25-OH (test 15 ng/ml Perfo rmed At: ES code = Vitamin D3 [employer] I hu0025 Lost 25-OH) [place], [place] [id number] brittney Isauro Dillon MD Ph:[phone] [facility]/Pelvis w contrast [id number] 11:45:00EXAM: CT ABDOMEN AND PELVIS WITH CONTRASTDATE: 07/12/2019 11:45 CDTINDICATION: - T14.8XXA Other injury of unspecified body region, initialencounter,Z98.890 Other specified postprocedural statesADDITIONAL INFORMATION: Hematoma, status post hernia repair.COMPARISON: CT renal protocol from 03/30/2019TECHNIQUE: Volumetric CT of the abdomen and pelvis is acquired following theintravenous administration of contrast, venous and delayed. Axial, coronal andsagittal images are provided.IV contrast: 95 mL Visipaque 320Enteric contrast: 50 mL Omnipaque 300DLP (mGy-cm): 1031 .FINDINGS: Lower thorax: Clear.Liver: Normal.Biliary tree: No intra- or extrahepatic biliary ductal dilation.Gallbladder: Normal.Pancreas: Pancreatic head calcifications again noted, likely sequela of chronicpancreatitis. Remaining pancreas is completely atrophic.Spleen: Few subcentimeter hypodensities are nonspecific, likely representcysts. The spleen is mildly enlarged measuring 14.2 cm in craniocaudal axis.Adrenals: Normal.Kidneys and ureters: Postsurgical changes of a left superior pole massresection. Moderate perinephric edema/stranding bilaterally, worse on the left.Exophytic right inferior pole cyst is unchanged. Other smaller renalhypodensities measuring up to 1.2 cm likely represent cysts and are unchanged.Normal excretion of contrast on delayed phase bilaterally.Bladder: Normal.Reproductive organs: Prostate and seminalvesicles are unremarkable.Gastrointestinal tract:Stomach: Normal.Small bowel: Contrast throughout the small bowel.Colon: Normal.Appendix: Normal.Peritoneum, mesentery and retroperitoneum: Mild ascites and generalizedmesenteric edema. No free air or loculated fluid.Lymph nodes: Normal.Vasculature:Aortaand branches: Diffuse calcification throughout the aorta, with ulceratedplaque in the infrarenal aort a.IVC and veins: Normal.Portal vasculature: Prominent main portal vein measuring 1.9 cm. Numerousperisplenic varicesBones: Chronic compression deformity of T10, with approximately 30% anteriorvertebralbody height loss. No retropulsion. Right L5 pars defect.Soft tissues: Anterior abdominal hernia meshnoted. Left inguinal herniacontaining a 3.5 cm round hypodense fluid collection, likely seroma.IMPRES ROXANA: 1. Left inguinal hernia with a 3.5 cm fluid collection, likely seepage of theascitic fluid.2. Postsurgical changes of left superior pole renal mass resection.3. Sequelae of portal hypertensionwith dilated main portal vein,portosystemic varices, moderate generalized edema, and mild splenomegaly.4. Stable aortic atherosclerotic calcifications, with an infrarenal ulceratedplaque.--This reportwas dictated by a Painter And Decorator/Fellow/Physician Produce Sorter. Ihave personallyreviewed the imagesas well as the interpretation and agree with the findings.Read by: Jorge Greene MD Resident/Fellow/PhysicianAssistant: Jorge Greene MDDictated Date/time: 07/12/19 14:34Electronically Signed by: Fe Posadas MD 07/12/1915:23FINAL REPORTUnAmerican Fork Hospital PhysiciansXRAY Chest 2 views [id number] 14:15:00EXAM: XR CHEST 2 VIEWSDATE: 06/29/2019 14:15 CDTINDICATION: Cough and shortness of breath for the past 2 daysCOMPARISON: 07/18/2017TECHNIQUE: PA and lateral chest radiographsFINDINGS: Stable mild linearscarring is seen in the right middle lobe. Noother lung parenchymal or pleural abnormalities are seen. Manuela and pulmonaryvasculature are normal. Cardiac silhouette is normal size. Mild atheroscleroticc alcifications are seen in the aortic arch. No acute bony abnormality isidentified. Mild multilevel spondylosis is seen in the thoracic spine.IMPRESSION: No acute cardiopulmonary abnormality. Mild linear scarring in theright middle lobe.--Read by: Vikas French MDDictated Date/time: 06/29/19 14:26Electronically Signed by: Vikas French MD 06/29/1914:27FINAL REPORTUnAmerican Fork Hospital Physicians[[facility]] HEPATITIS C [id number] 12:22:01 Test Item Value Reference Range Interpretation Comments Hepatitis C Antibody (test code = Negative Negative 52681-9) [facility]
[2021-03-09] MEDS ORDERED: METHYLPREDNISOLONE 125 MG INJ ONE (21:20)
[2021-03-09 21:29] LABS: Absolute Lymphocytes (CBC) 1.3 K/uL (0.7-4.9); Basophils % 0.9 % (0-1.3); Hematocrit 31.4 % (39.6-49.0); Lymphocytes % 18.2 % (15.3-44.8); MPV 10.3 fL (7.6-11.3); RBC Red Blood Cell Count 3.78 M/uL (4.33-5.43)
[2021-03-09 21:29] LABS: Arterial Blood Carboxyhemoglob 2.5 % (0-1.5); Blood Gas Oxyhemoglobin 96.6 % (94-97)
[2021-03-09 21:40] LABS: Albumin 4.1 g/dL (3.4-5.0); Bilirubin Direct 0.1 mg/dL (0-0.2); Bilirubin Total 0.4 mg/dL (0.2-1.0); Magnesium 2.4 mg/dL (1.8-2.4); Potassium 5.1 mmol/L (3.5-5.1); Troponin (Emerg Dept Use Only) 0.04 ng/mL (0.0-0.045)
[2021-03-09 21:54] LABS: Protime INR 1.06
[2021-03-09] MEDS ORDERED: FUROSEMIDE 40 MG/4 ML VIAL ONE ×2 (22:31→23:09)
[2021-03-09] MEDS ORDERED: AZITHROMYCIN 500 MG INJ IVPB ONE (22:31)
[2021-03-09] MEDS ORDERED: CEFTRIAXONE/SWI 1gm 1 GM/10 ML SYR ONE (22:32)
[2021-03-09] MEDS ORDERED: NA CHLORIDE 0.9% 250 ML ONE (22:32)
[2021-03-09] MEDS ORDERED: NA CHLORIDE 0.9% 100 ML ONE (22:32)
--- NOTE | 2021-03-09 22:51 | ER ---
Nurse's Notes [facility] [place] Name: Yonathan Shah Age: 70 yrs Sex: Male : 1950 Arrival Date: 03/09/2021 Time: 20:53 Bed 17 Private MD: Diagnosis: Acute on chronic combined systolic (congestive) and diastolic (congestive) heart failure;Pneumonia;COPD Exacerbation Presentation: 03/09 20:56 Chief complaint: EMS states: they were toned out for report of pt with sudden onset of bb shortness of breath pt very anxious on their arrival. Coronavirus screen: cough unrelated to allergies, shortness of breath, Client presents with at least one sign or symptom that may indicate coronavirus-19. Standard/surgical mask placed on the client. Ebola Screen: No symptoms or risks identified at this time. Initial Sepsis Screen: Does the patient meet any 2 criteria? RR > 20 per min. Does the patient have a suspected source of infection? Yes: Productive cough/pneumonia If YES to both, name of provider notified: Hoang Mendoza MD Risk Assessment: Do you want to hurt yourself or someone else? Unable to obtain. Onset of symptoms was March 09, 2021. 20:56 Method Of Arrival: EMS: [facility] bb 20:56 Acuity: RODRIGO 1 bb Historical: - Allergies: 20:59 No Known Allergies; bb - Home Meds: 20:59 Unable to obtain [Active]; bb - PMHx: 21:13 Hypertension; CHF; COPD; diabetes; bb - PSHx: 20:59 pacemaker; bb - Immunization history:: Adult Immunizations unknown. - Social history:: Smoking status: unknown. Screenin:05 Abuse screen: Denies threats or abuse. Denies injuries from another. Nutritional jm8 screening: No deficits noted. Tuberculosis screening: No symptoms or risk factors identified. Fall Risk None identified. Assessment: 21:00 General: Appears distressed, uncomfortable, Behavior is agitated, anxious, restless. jm8 21:00 Pain: Unable to use pain scale. Patient is disoriented. Patient appears agitated, jm8 confused. Neuro: No deficits noted. Level of Consciousness is awake, alert, obeys commands, Oriented to person, place, time. Cardiovascular: No deficits noted. Respiratory: Reports shortness of breath cough that is Airway is patent Trachea midline Respiratory effort is labored, with nasal flaring, Respiratory pattern is symmetrical, tachypnea. GI: No deficits noted. No signs and/or symptoms were reported involving the gastrointestinal system. : No deficits noted. No signs and/or symptoms were reported regarding the genitourinary system. EENT: No deficits noted. No signs and/or symptoms were reported regarding the EENT system. Derm: No deficits noted. No signs and/or symptoms reported regarding the dermatologic system. Derm: No deficits noted. Musculoskeletal: No deficits noted. No signs and/or symptoms reported regarding the musculoskeletal system. 03/10 13:25 Reassessment: Gave report to CASSIDY Acuña. Information from the SBAR was given. All rb3 questions asked and answered. Vital Signs: 03/09 20:56 BP 143 / 114; Pulse 112; Resp 28 S; Temp 96.6(TE); Pulse Ox 100% on BiPAP; Weight 72.57 bb kg (R); Pain 0/10; 21:51 BP 150 / 96; Pulse 100; Resp 20; Pulse Ox 100% on BiPAP; jm8 22:50 BP 133 / 88; Pulse 95; Resp 20; Pulse Ox 100% on BiPAP; jm8 23:46 BP 126 / 82; Pulse 90; Resp 18; Pulse Ox 100% on BiPAP; jm8 ED Course: 20:53 Patient arrived in ED. mw2 20:56 BIPAP Sent. mw2 20:58 Hoang Mendoza MD is Attending Physician. 7 20:58 Triage completed. bb 20:59 Arm band placed on Patient placed in an exam room, on a stretcher, on oxygen, on bb teletypesetter monitor, on pulse oximetry, RT at bedside for placement of pt on Bipap. 21:00 Inserted saline lock: 20 gauge in left forearm, using aseptic technique. Blood rr5 collected. 21:06 Patient has correct armband on for positive identification. Bed in low position. Call 8 light in reach. Side rails up X2. 21:07 Inserted saline lock: 20 gauge in right forearm, using aseptic technique. rr5 21:27 XRAY Chest (1 view) In Process Unspecified. EDMS 21:39 Influenza Screen (a \\T\\ B) Sent. 5 21:39 COVID-19 : Document "Date of Symptom Onset" if Symptomatic. Sent. mh5 21:39 Initial lab(s) drawn, by ED staff, sent to lab. EKG done, by ED staff, reviewed by [facility] Hoang Mendoza MD COVID swab sent to lab. Flu and/or RSV swab sent to lab. 22:49 Elvis Mendoza DO is Hospitalizing Provider. [facility] 03/10 07:09 Aiyana Mcdonald, CASSIDY is Primary Nurse. kg 11:40 Missed attempt(s): 22 gauge in right forearm. Bleeding controlled, band aid applied, dh3 catheter tip intact. 12:30 IV discontinued, intact, bleeding controlled, No redness/swelling at site. Pressure rb3 dressing applied, 20 G R Forearm. 13:00 Inserted saline lock: 20 gauge in left antecubital area, using aseptic technique. Blood dh3 collected. 13:45 No provider procedures requiring assistance completed. rb3 13:45 Patient admitted, IV remains in place. rb3 Administered Medications: 03/09 21:04 Drug: SOLU-Medrol (methylPrednisoLONE) 125 mg Route: IVP; Site: left forearm; [facility] 22:49 Follow up: Response: No adverse reaction [facility] 22:26 Drug: Zithromax (azithromycin) 500 mg Route: IVPB; Infused Over: 1 hrs; Site: right [facility] antecubital; 22:27 Drug: Lasix (furosemide) 40 mg Route: IVP; Site: right forearm; 8 22:42 Follow up: Response: No adverse reaction [facility] 22:27 Drug: Rocephin (cefTRIAXone) 1 grams Route: IV; Rate: per protocol; Site: left forearm; [facility] 22:42 Follow up: Response: No adverse reaction; IV Status: Completed infusion [facility] 22:47 Drug: Insulin Regular Human 10 units {Co-Signature: bb (Becki Landis RN).} Route: [facility] IVP; Site: left forearm; 23:29 Follow up: Response: No adverse reaction [facility] 22:49 Drug: Lasix (furosemide) 20 mg Route: IVP; Site: left forearm; [facility] 23:29 Follow up: Response: No adverse reaction [facility] 03/10 01:31 Drug: morphine 2 mg Route: IVP; Site: right forearm; 8 01:35 Follow up: Response: No adverse reaction [facility] 01:49 Drug: [place] (HYDROcodone-acetaminophen) (7.5 mg-325 mg) 1 tabs Route: PO; jm8 01:57 Follow up: Response: No adverse reaction [facility] 01:50 Drug: Flomax (tamsulosin) 0.4 mg Route: PO; jm8 01:57 Follow up: Response: No adverse reaction 8 Outcome: 03/09 22:50 Decision to Hospitalize by Provider. [facility] 03/10 13:45 Admitted to Med/surg accompanied by tech, via wheelchair, room 210, with oxygen, with rb3 chart, Report called to CASSIDY Acuña Condition: stable Instructed on the need for admit. 13:48 Patient left the ED. rb3 Signatures: Dispatcher [employer] EDBecki Amos, RN Delia Gupta [facility] Tanya Mayer [facility] Shaneka Arthur [facility] Luca Hammer RN RN rr5 Hoang Mendoza MD MD 7 Sarah Pichardo RN RN rb3 Kam Sawant RN RN 8 Aiyana Mcdonald RN RN Becki pearl Corrections: (The following items were deleted from the chart) 03/09 21:13 20:59 PMHx: Unable to obtain; ryanne pearl
--- NOTE | 2021-03-09 22:51 | EDPHYS ---
Physician Documentation [facility] Name: Yonathan Shah Age: 70 yrs Sex: Male : 1950 Arrival Date: 03/09/2021 Time: 20:53 Bed 17 Private MD: ED Physician Hoang Mendoza HPI: 03/09 21:15 This 70 yrs old Male presents to ER via EMS with complaints of Shortness Of Breath. 7 21:15 The patient has shortness of breath at rest. Onset: The symptoms/episode began/occurred mh7 today. Duration: The symptoms are continuous, and are unchanged since they started. The patient's shortness of breath is aggravated by nothing, is alleviated by nothing. 21:15 Associated signs and symptoms: Pertinent positives: non-productive cough, Pertinent mh7 negatives: chest pain, productive cough, diaphoresis, dizziness, fever, hemoptysis, loss of consciousness, nausea, numbness in extremities, visual changes, vomiting. 21:15 Severity of symptoms: At their worst the symptoms were severe today, in the emergency [facility] department the symptoms have improved moderately. Historical: - Allergies: 20:59 No Known Allergies; bb - Home Meds: 20:59 Unable to obtain [Active]; bb - PMHx: 21:13 Hypertension; CHF; COPD; diabetes; bb - PSHx: 20:59 pacemaker; bb - Immunization history:: Adult Immunizations unknown. - Social history:: Smoking status: unknown. ROS: 21:15 Constitutional: Negative for fever, chills, and weight loss, Eyes: Negative for injury, mh7 pain, redness, and discharge, ENT: Negative for injury, pain, and discharge, Neck: Negative for injury, pain, and swelling, Cardiovascular: Negative for chest pain, palpitations, and edema, Abdomen/GI: Negative for abdominal pain, nausea, vomiting, diarrhea, and constipation, Back: Negative for injury and pain, : Negative for injury, bleeding, discharge, and swelling, MS/Extremity: Negative for injury and deformity, Skin: Negative for injury, rash, and discoloration, Neuro: Negative for headache, weakness, numbness, tingling, and seizure, Psych: Negative for depression, anxiety, suicide ideation, homicidal ideation, and hallucinations, Allergy/Immunology: Negative for hives, rash, and allergies, Endocrine: Negative for neck swelling, polydipsia, polyuria, polyphagia, and marked weight changes, Hematologic/Lymphatic: Negative for swollen nodes, abnormal bleeding, and unusual bruising. Exam: 21:15 Head/Face: Normocephalic, atraumatic. Eyes: Pupils equal round and reactive to light, mh7 extra-ocular motions intact. Lids and lashes normal. Conjunctiva and sclera are non-icteric and not injected. Cornea within normal limits. Periorbital areas with no swelling, redness, or edema. Neck: Trachea midline, no thyromegaly or masses palpated, and no cervical lymphadenopathy. Supple, full range of motion without nuchal rigidity, or vertebral point tenderness. No Meningismus. Chest/axilla: Normal chest wall appearance and motion. Nontender with no deformity. No lesions are appreciated. 21:15 Abdomen/GI: Soft, non-tender, with normal bowel sounds. No distension or tympany. No guarding or rebound. No evidence of tenderness throughout. Back: No spinal tenderness. No costovertebral tenderness. Full range of motion. Skin: Warm, dry with normal turgor. Normal color with no rashes, no lesions, and no evidence of cellulitis. MS/ Extremity: Pulses equal, no cyanosis. Neurovascular intact. Full, normal range of motion. Neuro: Awake and alert, GCS 15, oriented to person, place, time, and situation. Cranial nerves II-XII grossly intact. Motor strength 5/5 in all extremities. Sensory grossly intact. Cerebellar exam normal. Normal gait. Psych: Awake, alert, with orientation to person, place and time. Behavior, mood, and affect are within normal limits. 21:15 Constitutional: The patient appears alert, awake, in obvious distress, moderately distressed, obviously ill. 21:15 Cardiovascular: Rate: tachycardic, Rhythm: regular, Pulses: no pulse deficits are appreciated, Heart sounds: normal, normal S1and S2, Edema: is not appreciated, JVD: is not appreciated. 21:15 Respiratory: moderate respiratory distress is noted, Respirations: prolonged exhalation, that is moderate, tachypnea, that is moderate, Breath sounds: rales, that are moderate, are located in both bases, rhonchi, that are moderate, are scattered. Vital Signs: 20:56 BP 143 / 114; Pulse 112; Resp 28 S; Temp 96.6(TE); Pulse Ox 100% on BiPAP; Weight 72.57 bb kg (R); Pain 0/10; 21:51 BP 150 / 96; Pulse 100; Resp 20; Pulse Ox 100% on BiPAP; jm8 22:50 BP 133 / 88; Pulse 95; Resp 20; Pulse Ox 100% on BiPAP; jm8 23:46 BP 126 / 82; Pulse 90; Resp 18; Pulse Ox 100% on BiPAP; jm8 MDM: 22:48 Differential diagnosis: Anemia Anxiety Reaction asthma, Bronchitis CHF exacerbation, 7 Chronic Obstructive Pulmonary Disease Myocardial Infarction pneumonia, Pneumothorax Psychogenic pulmonary edema, reactive airway disease. Data reviewed: vital signs, nurses notes, EMS record, lab test result(s), cardiac enzymes, CBC, electrolytes, EKG, radiologic studies, plain films. Data interpreted: Pulse oximetry: on BiPAP is 100 %. Interpretation: acceptable. Counseling: I had a detailed discussion with the patient and/or guardian regarding: the historical points, exam findings, and any diagnostic results supporting the discharge/admit diagnosis, the presence of at least one elevated blood pressure reading (>120/80) during this emergency department visit, lab results, radiology results, the need for further work-up and treatment in the hospital. Response to treatment: the patient's symptoms have markedly improved after treatment. 22:50 Patient medically screened. [facility] 03/09 20:58 Order name: Basic Metabolic Panel [facility] 03/09 20:58 Order name: CBC with Diff [facility] 03/09 20:58 Order name: LFT's [facility] 03/09 20:58 Order name: Magnesium; Complete Time: 22:03 [facility] 03/09 20:58 Order name: NT PRO-BNP; Complete Time: 22:03 [facility] 03/09 20:58 Order name: PT-INR; Complete Time: 23:09 [facility] 03/09 20:58 Order name: Troponin (emerg Dept Use Only); Complete Time: 22:03 [facility] 03/09 20:58 Order name: Basic Metabolic Panel; Complete Time: 22:03 [facility] 03/09 20:59 Order name: CBC with Automated Diff; Complete Time: 21:38 [facility] 03/09 20:59 Order name: Liver (Hepatic) Function; Complete Time: 22:03 [facility] 03/09 21:00 Order name: Blood Culture Adult (2) [facility] 03/09 21:00 Order name: Influenza Screen (a \\T\\ B); Complete Time: 23:09 [facility] 03/09 21:00 Order name: COVID-19 : Document "Date of Symptom Onset" if Symptomatic. [facility] 03/09 21:00 Order name: Lactate; Complete Time: 00:33 [facility] 03/09 21:00 Order name: Arterial Blood Gas; Complete Time: 21:38 [facility] 03/09 21:12 Order name: Glucose, Ancillary Testing; Complete Time: 21:24 [facility] 03/09 21:55 Order name: Procalcitonin; Complete Time: 23:09 03/09 22:49 Order name: SARS-COV-2 RT PCR; Complete Time: 23:09 [facility] 03/10 07:53 Order name: Glucose, Ancillary Testing [facility] 03/10 09:08 Order name: CBC with Automated Diff [facility] 03/10 10:20 Order name: Hemoglobin A1c [facility] 03/10 10:25 Order name: Comprehensive Metabolic Panel [facility] 03/10 10:25 Order name: Troponin I [facility] 03/10 10:25 Order name: Lipid Profile [facility] 03/10 10:25 Order name: T4 Free [facility] 03/10 10:25 Order name: Magnesium [facility] 03/10 10:25 Order name: Thyroid Stimulating Hormone [facility] 03/10 10:27 Order name: Glucose, Ancillary Testing [facility] 03/10 11:52 Order name: Glucose, Ancillary Testing [facility] 03/09 20:55 Order name: BIPAP 2 03/09 20:58 Order name: XRAY Chest (1 view) [facility] 03/09 20:58 Order name: EKG; Complete Time: 20:59 [facility] 03/09 20:58 Order name: Cardiac monitoring; Complete Time: 21:04 [facility] 03/09 20:58 Order name: EKG - Nurse/Tech; Complete Time: 21:04 [facility] 03/09 20:58 Order name: IV Saline Lock; Complete Time: 21:04 [facility] 03/09 20:58 Order name: Labs collected and sent; Complete Time: 21:04 [facility] 03/09 20:58 Order name: O2 Per Protocol; Complete Time: 21:04 [facility] 03/09 20:58 Order name: O2 Sat Monitoring; Complete Time: 21:07 7 03/09 22:34 Order name: Chest Wo Con CT la1 03/10 12:06 Order name: Potassium EDMS 03/10 13:17 Order name: CBC Smear Scan [facility] 03/10 13:47 Order name: Glucose Level EDMS Administered Medications: 21:04 Drug: SOLU-Medrol (methylPrednisoLONE) 125 mg Route: IVP; Site: left forearm; [facility] 22:49 Follow up: Response: No adverse reaction [facility] :26 Drug: Zithromax (azithromycin) 500 mg Route: IVPB; Infused Over: 1 hrs; Site: right [facility] antecubital; 22:27 Drug: Lasix (furosemide) 40 mg Route: IVP; Site: right forearm; [facility] 22:42 Follow up: Response: No adverse reaction [facility] :27 Drug: Rocephin (cefTRIAXone) 1 grams Route: IV; Rate: per protocol; Site: left forearm; 8 22:42 Follow up: Response: No adverse reaction; IV Status: Completed infusion [facility] :47 Drug: Insulin Regular Human 10 units {Co-Signature: bb (Becki Landis RN).} Route: [facility] IVP; Site: left forearm; 23:29 Follow up: Response: No adverse reaction [facility] 22:49 Drug: Lasix (furosemide) 20 mg Route: IVP; Site: left forearm; 8 23:29 Follow up: Response: No adverse reaction [facility] 03/10 01:31 Drug: morphine 2 mg Route: IVP; Site: right forearm; jm8 01:35 Follow up: Response: No adverse reaction [facility] 01:49 Drug: [place] (HYDROcodone-acetaminophen) (7.5 mg-325 mg) 1 tabs Route: PO; jm8 01:57 Follow up: Response: No adverse reaction 8 01:50 Drug: Flomax (tamsulosin) 0.4 mg Route: PO; jm8 01:57 Follow up: Response: No adverse reaction [facility] Disposition: 03/09/21 22:50 Hospitalization ordered by Evlis Mendoza for Inpatient Admission. Preliminary diagnosis are Acute on chronic combined systolic (congestive) and diastolic (congestive) heart failure, Pneumonia, COPD Exacerbation. - Bed requested for Telemetry/MedSurg (Inpatient). - Status is Inpatient Admission. rb3 - Condition is Stable. - Problem is an acute exacerbation. - Symptoms have improved. Signatures: Dispatcher [employer] [facility] Verna Franco, RN Becki Macias RN RN bb Attema, Lee, OMAR-C BEAM WORKER-Cla1 Saima Guzman, RN CASSIDY ea Shaneka Arthur mw2 Hoang Mendoza MD MD 7 Jacquelin Laguna RN RN rd1 Sarah Pichardo RN RN rb3 Kam Sawant RN RN jm8 Becki pearl Corrections: (The following items were deleted from the chart) 03/09 21:13 20:59 PMHx: Unable to obtain; ryanne pearl 21:41 21:00 CORONAVIRUS+MR.LAB.WILMERZ ordered. [facility] 03/10 00:08 03/09 22:50 Hospitalization Ordered by Elvis Mendoza DO for Inpatient Admission. rd1 Preliminary diagnosis is Acute on chronic combined systolic (congestive) and diastolic (congestive) heart failure; Pneumonia; COPD Exacerbation. Bed requested for Telemetry/MedSurg (Inpatient). Status is Inpatient Admission. Condition is Stable. Problem is an acute exacerbation. Symptoms have improved. 7 03/10 00:14 00:08 03/09/2021 22:50 Hospitalization Ordered by Elvis Mendoza DO for Inpatient mw2 Admission. Preliminary diagnosis is Acute on chronic combined systolic (congestive) and diastolic (congestive) heart failure; Pneumonia; COPD Exacerbation. Bed requested for Telemetry/MedSurg (Inpatient). Status is Inpatient Admission. Condition is Stable. Problem is an acute exacerbation. Symptoms have improved. rd1 00:49 00:14 03/09/2021 22:50 Hospitalization Ordered by Elvis Mendoza DO for Inpatient mw2 Admission. Preliminary diagnosis is Acute on chronic combined systolic (congestive) and diastolic (congestive) heart failure; Pneumonia; COPD Exacerbation. Bed requested for Telemetry/MedSurg (Inpatient). Status is Inpatient Admission. Condition is Stable. Problem is an acute exacerbation. Symptoms have improved. mw2 12:42 00:49 03/09/2021 22:50 Hospitalization Ordered by Elvis Mendoza DO for Inpatient dw Admission. Preliminary diagnosis is Acute on chronic combined systolic (congestive) and diastolic (congestive) heart failure; Pneumonia; COPD Exacerbation. Bed requested for [facility] ER HOLD. Status is Inpatient Admission. Condition is Stable. Problem is an acute exacerbation. Symptoms have improved. mw2 12:43 12:42 03/09/2021 22:50 Hospitalization Ordered by Elvis Mendoza DO for Inpatient dw Admission. Preliminary diagnosis is Acute on chronic combined systolic (congestive) and diastolic (congestive) heart failure; Pneumonia; COPD Exacerbation. Bed requested for Telemetry/MedSurg (Inpatient). Status is Inpatient Admission. Condition is Stable. Problem is an acute exacerbation. Symptoms have improved. dw 13:48 12:43 03/09/2021 22:50 Hospitalization Ordered by Elvis Mendoza DO for Inpatient rb3 Admission. Preliminary diagnosis is Acute on chronic combined systolic (congestive) and diastolic (congestive) heart failure; Pneumonia; COPD Exacerbation. Bed requested for Telemetry/MedSurg (Inpatient). Status is Inpatient Admission. Condition is Stable. Problem is an acute exacerbation. Symptoms have improved. dw
[2021-03-09] MEDS ORDERED: INSULIN -REGULAR HUMAN 50 UNIT/0.5 ML ML ONE (23:01)
--- NOTE | 2021-03-09 23:50 | P.HP ---
Certification for Inpatient Patient admitted to: Inpatient With expected LOS: >2 Midnights Patient will require the following post-hospital care: None Practitioner: I am a practitioner with admitting privileges, knowledge of patient current condition, hospital course, and medical plan of care. Services: Services provided to patient in accordance with Admission requirements found in Title 42 Section 412.3 of the Code of Federal Regulations Patient History Date of Service: 03/09/21 Primary Care Provider: Out of town doctor Reason for admission: CHF exacerbation History of Present Illness: 70-year-old male with history of combined systolic/diastolic congestive heart failure, CKD 3, diabetes mellitus type 2, COPD, hyperlipidemia presents emergency department in respiratory distress, patient was driving his car when he became short of breath and called EMS, patient was reported to be hypoxic in the 80s by EMS. Patient reports he had a recent admission at [facility] for CHF exacerbation with right-sided pneumonia. Patient was treated with IV diuresis and antibiotics and did improve significantly, was down visiting his family today while driving and became suddenly short of breath. Patient was evaluated in the emergency department, labs significant for sodium 135 creatinine 2.1 GFR 32 which patient reports is close to his baseline glucose 396 BNP 8678 initial troponin 0.04 pro calcitonin less than 0.05 white blood cell count 7.3 chest x-ray appears to show volume overload with possible right-sided pneumonia, pending official radiology read, CT chest without contrast also pending. ED provider wishes to admit for CHF exacerbation. - Past Medical/Surgical History -: Combined Systolic/diastolic congestive heart failure S/P pacemaker/defibril -: Hypertension -: Diabetes mellitus type 2 -: COPD -: Hyperlipidemia -: Pacemaker/defibrillator -: Hernia repair -: Renal mass removal -: Cataracts Psychosocial/ Personal History: Patient is retired, lives with brother - Family History Father -: Cancer Sister -: Cancer - Social History Smoking Status: Former smoker Alcohol use: No CD- Drugs: Yes Caffeine use: Yes Place of Residence: Home Review of Systems 10-point ROS is otherwise unremarkable Respiratory: Cough, Shortness of Breath, SOB with Excertion Cardiovascular: Chest Pain Physical Examination - Physical Exam General: Alert, In no apparent distress, Oriented x3 HEENT: Atraumatic, PERRLA, Mucous membr. moist/pink Neck: Supple, 2+ carotid pulse no bruit, No LAD Respiratory: Diminished, Crackles/rales (Bilaterally), Other (Increased respiratory effort, tachypneic, dyspnea) Cardiovascular: Regular rate/rhythm, Normal S1 S2, Edema (1+ pitting edema bilateral lower extremity) Gastrointestinal: Normal bowel sounds, No tenderness Musculoskeletal: No tenderness Integumentary: No rashes Neurological: Normal speech, Normal strength at 5/5 x4 extr, Normal tone, Normal affect - Studies Laboratory Data (last 24 hrs) 03/09/21 20:29: WBC 7.30, Hgb 10.3 L, Hct 31.4 L, Plt Count 175 03/09/21 20:29: Sodium 135 L, Potassium 5.1, BUN 41 H, Creatinine 2.10 H, Glucose 396 H, Magnesium 2.4, Total Bilirubin 0.4, AST 67 H, ALT 67, Alkaline Phosphatase 95 03/09/21 20:25: PT 12.2, INR 1.06 Microbiology Data (last 24 hrs): 03/09/21 21:05 Nasopharnyx Influenza Type A Antigen Screen - Final 03/09/21 21:05 Nasopharnyx Influenza Type B Antigen Screen - Final Assessment and Plan - Plan Assessment Acute hypoxic respiratory failure secondary to combined systolic/diastolic congestive heart failure with exacerbation s/p pacemaker/defibrillator placement complicated with suspected right-sided pneumonia and history of COPD CKD 3 Diabetes mellitus type 2 Hypertension, hyperlipidemia Plan Acute hypoxic respiratory failure secondary to combined systolic/diastolic congestive heart failure with exacerbation s/p pacemaker/defibrillator placement complicated with suspected right-sided pneumonia and history of COPD: No echo available for review, patient unaware of what his EF is but has been told he has Double heart failure patient currently taking Lasix 40 mg daily but has been on as much as 40 mg p.o. t.i.d. in the past. Patient with hospitalization about a week prior for similar problems, will have records obtained from previous hospitalization at [facility]. Will continue with IV diuresis, cardiology consult, pulmonology consult, Lasix 40 mg IV b.i.d., Rocephin/Zithromax. White blood cell count normal pro calcitonin negative, blood cultures obtained in the emergency department, CT chest pending for further evaluation, may need to escalate antibiotic therapy as patient is with previous hospitalization. DVT prophylaxis with heparin 5000 subcutaneous twice daily. Will provide inhaler p.r.n. for COPD, patient not wheezing at this time, not hypercapnic. CKD 3: Stable, patient reports his baseline creatinine is around 2, currently 2.1. Will continue to monitor closely, consult nephrology for assistance. Diabetes mellitus type 2: A.c. HS Accu-Cheks scale insulin therapy. Hypertension, hyperlipidemia: Continue medications, adjust as necessary. Discharge Plan: Home Plan to discharge in: Greater than 2 days - Advance Directives Does patient have a Living Will: No Does patient have a Durable POA for Healthcare: No - Code Status/Comfort Care Code Status Assessed: Yes (Full code) Critical Care: No Time Spent Managing Pts Care (In Minutes): 55
[2021-03-10] MEDS ORDERED: MORPHINE 2 MG/ML SYR ONE (01:52)
[2021-03-10] MEDS ORDERED: HYDROCODONE/APAP 7.5/325 MG TAB ONE (02:07)
[2021-03-10] MEDS ORDERED: TAMSULOSIN 0.4 MG SR CAP ONE (02:07)
--- NOTE | 2021-03-10 06:18 | P.PN ---
Subjective Date of Service: 03/10/21 Primary Care Provider: Out of town doctor Chief Complaint: CHF exacerbation Subjective: Other (he feels better. Currently on 2 liters per nc. He lives in [place]. He was fishing in the area with family. He has all his doctors in [place].) Physical Examination - Vital Signs Temperature: 97.3 F Blood Pressure: 159/98 Pulse: 93 Respirations: 16 Pulse Ox (%): 99 - Studies Laboratory Data (last 24 hrs) 03/09/21 20:29: WBC 7.30, Hgb 10.3 L, Hct 31.4 L, Plt Count 175 03/09/21 20:29: Sodium 135 L, Potassium 5.1, BUN 41 H, Creatinine 2.10 H, Glucose 396 H, Magnesium 2.4, Total Bilirubin 0.4, AST 67 H, ALT 67, Alkaline Phosphatase 95 03/09/21 20:25: PT 12.2, INR 1.06 Microbiology Data (last 24 hrs): 03/09/21 21:05 Nasopharnyx Influenza Type A Antigen Screen - Final 03/09/21 21:05 Nasopharnyx Influenza Type B Antigen Screen - Final Assessment & Plan Discharge Plan: Home Plan to discharge in: 72 Hours Physician Review Additional Text: CT chest: Results pending Physical exam General: Alert, In no apparent distress, Oriented x3 HEENT: Atraumatic, PERRLA, Mucous membr. moist/pink Neck: Supple, 2+ carotid pulse no bruit, No LAD Respiratory: Better air movement bilateral. Less crackles to the bases. Currently on 3 L per nasal cannula. Cardiovascular: Regular rate and rhythm Gastrointestinal: Normal bowel sounds, No tenderness Musculoskeletal: No tenderness Integumentary: No rashes. Edema to the lower extremities improved. Less than 1+. Neurological: Normal speech, Normal strength at 5/5 x4 extr, Normal tone, Normal affect Medical problem list Acute hypoxic respiratory failure secondary to combined acute on chronic systolic/diastolic congestive heart failure with history of pacemaker defibrillator complicated COPD COPD Chronic renal disease stage III Diabetes mellitus type 2 insulin-dependent with hyperglycemia Hypertension Hyperlipidemia GERD Anemia of chronic disease Plan Acute hypoxic respiratory failure secondary to combined acute on chronic systolic/diastolic congestive heart failure with history of pacemaker defibrillator complicated COPD: Patient appears improved with IV diuresis. Patient remains on IV Lasix 40 mg IV twice daily. Continue 1500 cc per day fluid restriction. Procalcitonin negative. White count within normal range. Doubt pneumonia. Patient recently treated for pneumonia. Will discontinue IV antibiotic therapy for now. Will recheck chest x-ray tomorrow. Wean off oxygen. Will need to obtain records from [facility]. He has most of his specialists up in [place]. He lives in [place]. He was going fishing with some family. Continue COPD treatment. Start low-dose prednisone. Await further recommendations from pulmonology and cardiology. Will start basal insulin for better diabetic control. Anticipate improvement over the next 48 to 72 hours. I will turn the service over to the hospitalist team tomorrow. I will go over the plan of care with him COPD: Will start low-dose prednisone. Continue COPD medication. Wean off oxygen. Pulmonology consulted. Chronic renal disease stage III: This appears stable. Nephrology consulted. Await recommendations. Continue with above plan of care. Diabetes mellitus type 2 insulin-dependent with hyperglycemia: Will start basal insulin Lantus 20 units twice daily. Continue aggressive sliding scale. Will monitor and adjust medication. Will check A1c. Need to obtain home medication list. Hypertension: Will start metoprolol 25 mg 1 pill twice daily. Need to obtain and review home medication. Hyperlipidemia: Continue with statin medication. Will obtain fasting lipid panel. GERD: Will start Protonix. Anemia of chronic disease: Will check iron and B12 studies. Maintain hemoglobin above 7.5. DVT prophylaxis: Heparin. Hold if platelet count less than 90 CODE STATUS: Full code Advance care [id number] minutes: Patient desires to go home at discharge. Patient gets most of his care up in [place] where he lives. Time Spent Managing Pts Care (In Minutes): 55
[2021-03-10] MEDS ORDERED: VANCOMYCIN/NS 1 gm 1 GM/250 ML BAG IVPB SCH (07:29)
[2021-03-10] MEDS ORDERED: ONDANSETRON 4 MG/2 ML VIAL IV PRN (07:29)
[2021-03-10] MEDS ORDERED: HYDROCODONE/APAP 5/325 MG TAB PO PRN (07:29)
[2021-03-10] MEDS ORDERED: MORPHINE 2 MG/ML SYR IV PRN (07:29)
[2021-03-10] MEDS ORDERED: ALBUTEROL INHALER 60 PUFF/8 GM IH PRN (07:29)
[2021-03-10] MEDS: INSULIN -REGULAR HUMAN 50 UNIT/0.5 ML ML SQ SCH ×5 (07:30→20:23)
[2021-03-10] MEDS ORDERED: INSULIN -REGULAR HUMAN 50 UNIT/0.5 ML ML ONE ×3 (08:25→12:08)
[2021-03-10 08:34] LABS: Absolute Lymphocytes (CBC) 0.1 K/uL (0.7-4.9); Basophils % 0.7 % (0-1.3); Hematocrit 28.9 % (39.6-49.0); Lymphocytes % 4.4 % (15.3-44.8); MPV 10.3 fL (7.6-11.3)
--- NOTE | 2021-03-10 08:43 | EKG ---
Test Date: 2021-03-09 Test Time: 20:56:45 Carrier Blower: MEASUREMENT RESULTS: Intervals: Rate: 102 CA: 186 QRSD: 98 QT: 362 QTc: 471 [place]: P: 78 CA: 186 QRS: 27 T: 83 INTERPRETIVE STATEMENTS: Sinus tachycardia with occasional ventricular-paced complexes and premature atrial complexes with aberrant conduction Nonspecific ST and T wave abnormality Abnormal ECG No previous ECG available for comparison Electronically Signed On 03-10-21 08:42:51 CDT by Tristin Perla
[2021-03-10] MEDS ORDERED: CEFEPIME/SWI 2gm 2 GM/20 ML SYR IVP SCH (09:00)
[2021-03-10] MEDS: ASPIRIN EC 81 MG TAB PO SCH (09:00)
[2021-03-10] MEDS ORDERED: CEFEPIME 2 GM VIAL IV SCH (09:00)
[2021-03-10] MEDS ORDERED: HEPARIN 5000 UNIT/ML 1 ML VIAL SQ SCH (09:00)
[2021-03-10] MEDS: FUROSEMIDE 40 MG/4 ML VIAL IV SCH ×2 (09:00→16:15)
[2021-03-10] MEDS ORDERED: VANCOMYCIN 1.25 GM in NA CHLORIDE 0.9% 250 ML IVPB SCH (09:00)
[2021-03-10] MEDS ORDERED: HEPARIN 5000 UNIT/ML 1 ML VIAL ONE (10:07)
[2021-03-10] MEDS ORDERED: ASPIRIN 81 MG CHEWABLE TABLET ONE (10:07)
[2021-03-10] MEDS ORDERED: FUROSEMIDE 40 MG/4 ML VIAL ONE (10:07)
[2021-03-10 10:22] LABS: Albumin 3.4 g/dL (3.4-5.0); Bilirubin Total 0.5 mg/dL (0.2-1.0); Magnesium 2.2 mg/dL (1.8-2.4); Potassium 5.2 mmol/L (3.5-5.1); Protein, Total 6.9 g/dL (6.4-8.2); Troponin I 0.46 ng/mL (0.0-0.045)
[2021-03-10] MEDS ORDERED: GLUCAGON 1 MG/VIAL IM PRN (10:22)
[2021-03-10] MEDS ORDERED: D50W 25 GM/50 ML VIAL IV PRN (10:28)
[2021-03-10] MEDS ORDERED: ALBUTEROL 2.5 MG/3 ML NEB SOL NEB PRN (10:40)
[2021-03-10] MEDS ORDERED: IPRATROPIUM BROM 0.5MG/2.5ML NEB PRN (10:40)
[2021-03-10] MEDS: INSULIN GLARGINE 100 UNITS/ML SQ SCH ×2 (11:00→20:24)
[2021-03-10] MEDS: HEPARIN 5000 UNIT/ML 1 ML VIAL SQ SCH ×2 (11:00→20:21)
[2021-03-10] MEDS ORDERED: TRAMADOL HCL 50 MG TAB PO PRN (11:09)
[2021-03-10] MEDS ORDERED: INSULIN GLARGINE 100 UNITS/ML SQ ONE (12:07)
[2021-03-10 13:16] LABS: Blood Morphology Comment NOT SEEN (NOT SEEN); Platelet Estimate DECR; White Blood Cell Scan OK (OK)
[2021-03-10] MEDS ORDERED: HOME MED 1 EA UNK (Hydralazine Hcl [Hydralazine Hcl] 100 MG Tablet) PO SCH (14:00)
[2021-03-10] MEDS ORDERED: HYDRALAZINE HCL 25 MG TABLET PO SCH (14:00)
[2021-03-10] MEDS: METOPROLOL TAR 25 MG TAB PO SCH (17:19)
--- NOTE | 2021-03-10 17:34 | RAD REPORT ---
EXAM DESCRIPTION: US - Renal Ultrasound-Complete - 03/10/2021 4:57 pm CLINICAL HISTORY: Acute renal insufficiency COMPARISON: None. FINDINGS: The right kidney measures 10 cm with an increased echotexture. 6.7 centimeters The left kidney measures 10 cm with an increased echotexture. Hydronephrosis is not seen. No gross abnormality of bladder is seen IMPRESSION: Increased renal echotexture consistent with parenchymal disease 6.7 centimeter right renal cyst
--- NOTE | 2021-03-10 17:51 | CON ---
Date of Consultation: 03/10/2021 Consulting Physician: Elvis Mendoza DO. Reason For Consultation: Elevated BUN and creatinine, fluid management. History Of Present Illness: This is a pleasant 70-year-old gentleman, unfortune with significant pas t medical history of advanced COPD, diabetes complicated with neuropathy since 1999, coronary artery disease complicated with congestive heart failure, renal mass loss secondary to partial left nephrect sabrina back in 2017 secondary to renal mass, chronic kidney disease with recent acute kidney injury back in early 2020 secondary to sepsis, required in-hospital dialysis at [facility]. At that time, he was dialyzed as inpatient, but apparently, he was discharge after without any the dialysis. Foll ow up with his private Nephrology in [place]. According to him, his baseline creatinine 2 weeks ago was 2.1. Apparently, the patient was coming to visit family here and had chest pain with shortness of breath and chest tightness. For that reason, he was brought to the hospital. Upon arrival to the hospital, lab show elevation in BUN and creatinine, creatinine of 2 with GFR of 32. For that reason , we have been consulted. The patient denied taking any nonsteroidal. No recent IV contrast. The p atient denied changing in his medications. Yesterday, creatinine was 2.1 and today is 2. The patient had marginal hyperkalemia with 5.2. Past Medical History: Include, 1.Hypertension. 2.Hyperlipidemia. 3.Coronary artery disease complicated with congestive heart failure. 4.Chronic kidney disease, multifactorial, secondary to diabetes nephropathy, renal mass loss seconda ry to partial left nephrectomy, cardiorenal, and hypertension. Baseline creatinine as out patient ea rly February 2021, 2.1 with GFR on the 30. 5.Diabetes complicated with neuropathy since 2004. 6.Renal CA, status post partial left nephrectomy in 2018. 7.Advanced COPD. Past Surgical History: Include, 1.Hemodialysis catheter placement and removal. 2.ICD. 3.Hernia repair. 4.Renal mass resection. 5.Partial nephrectomy on the left side in 2018. 6.Cataract. Family History: Positive for cancer. Social History: Ex-smoker, active alcohol, denies drug abuse. Review of Systems: Head and Neck: No red eye. No ear pain. GI: No nausea. No vomiting. : No polyuria. No dysuria. No hematuria. 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 Respiratory: Has shortness of breath. Cardiovascular: Has chest pain. Endocrine: No polydipsia. Skin: No rash. Neuro: Has neuropathy. Musculoskeletal: No joint pain. Physical Examination: Vital Signs: When I saw the patient; blood pressure 131/75, pulse of 72, afebrile. Chest: Clear to auscultation. Heart: S1, S2. Regular. Abdomen: Soft, nontender. Extremities: No edema. Neurologic: Alert. No focality. Laboratory Data: Sodium 133, potassium 5.2, bicarb 23, BUN 47, creatinine of 2, calcium 8.4, magnesi um 2.2. TSH 13. Chest x-ray showing cardiomegaly with congestion. Medications: Home medications include insulin, hydralazine, Flomax, tramadol, carvedilol. Current m edications include atorvastatin, hydralazine, insulin, metoprolol, prednisone, pantoprazole. Assessment And Plan: 1.Chronic kidney disease stage 3. Could be multifactorial secondary to cardiorenal/renal mass low s econdary to partial nephrectomy/diabetes nephropathy protein uric. The patient on his baseline, but over volume. I am going to go ahead and start the patient on Lasix and we will monitor the patient. 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 I am going to go ahead and get ultrasound a nd PTH and we will follow up. 2.Hypertension, controlled, optimal. We will utilize the blood pressure for more diuresis. I am go ing to start the patient on Lasix and we will follow up. I am going to go ahead and decrease his hyd ralazine to 50 mg and we will add YANA inhibitor for renal protection given the diabetes with congesti ve heart failure and the renal mass loss. 3.Hypothyroidism. I am going to start the patient on levothyroxine. 4.Marginal hyperkalemia. The patient is going to be started on Lasix. No need for further treatmen t. 5.Coronary artery disease with congestive heart failure. We will start the patient on Lasix. 6.Unstable angina as by primary. 7.Renal mass, status post resection, renal mass loss. Currently, we will start the patient on lisin opril. Thank you, Dr. Mendoza for allowing us to participate in the care of your patient. LEO Voice ID: [id number] Report ID: [id number]
[2021-03-10 18:00] LABS: Urine Protein/Creatinine Ratio 0.6 ratio (<0.15)
[2021-03-10 18:01] LABS: Urine Appearance CLEAR (Clear); Urine Bilirubin NEGATIVE (Negative); Urine Blood NEGATIVE (Negative); Urine Color YELLOW (Yellow); Urine Glucose 2+ (Negative); Urine Microscopic Reflex NO UMIC; Urine Protein NEGATIVE (Negative); Urine Urobilinogen 0.2 mg/dL (0.2-1.0); Urine pH 5.5 (5.0-7.0)
[2021-03-10] MEDS: ARFORMOTEROL TARTRATE 15 MCG/2 ML VIAL.NEB NEB SCH (20:05)
[2021-03-10] MEDS: HYDRALAZINE HCL 25 MG TABLET PO SCH (20:22)
[2021-03-10] MEDS: predniSONE 10 MG TAB PO SCH (20:22)
[2021-03-10] MEDS ORDERED: ATORVASTATIN 40 MG TAB PO SCH (21:00)
[2021-03-10 22:19] VITALS: BMI 23.8
[2021-03-11] MEDS: METOPROLOL TAR 25 MG TAB PO SCH ×2 (05:51→17:59)
[2021-03-11 06:14] LABS: Absolute Lymphocytes (CBC) 0.5 K/uL (0.7-4.9); Basophils % 0.2 % (0-1.3); Hematocrit 29.2 % (39.6-49.0); Lymphocytes % 6.1 % (15.3-44.8); MPV 10.3 fL (7.6-11.3); RBC Red Blood Cell Count 3.53 M/uL (4.33-5.43)
[2021-03-11 06:15] LABS: RBC Red Blood Cell Count 3.55 M/uL (4.33-5.43)
[2021-03-11] MEDS ORDERED: LEVOTHYROXINE SOD 0.025 MG TAB PO SCH (06:30)
[2021-03-11 06:54] LABS: Albumin 3.3 g/dL (3.4-5.0); Bilirubin Total 0.5 mg/dL (0.2-1.0); Ferritin 89.5 ng/mL (26-388); Folic Acid, (Folate) 16.7 ng/mL (3.1-17.5); Potassium 4.6 mmol/L (3.5-5.1); Protein, Total 6.6 g/dL (6.4-8.2); Uric Acid 10.6 mg/dL (3.5-7.2)
[2021-03-11] MEDS: INSULIN -REGULAR HUMAN 50 UNIT/0.5 ML ML SQ SCH ×3 (07:30→16:30)
[2021-03-11] MEDS ORDERED: PANTOPRAZOLE 40MG TABLET PO SCH (07:30)
[2021-03-11] MEDS: ARFORMOTEROL TARTRATE 15 MCG/2 ML VIAL.NEB NEB SCH (07:54)
[2021-03-11] MEDS: ASPIRIN EC 81 MG TAB PO SCH (08:39)
[2021-03-11] MEDS: HYDRALAZINE HCL 25 MG TABLET PO SCH ×2 (08:39→13:19)
[2021-03-11] MEDS: predniSONE 10 MG TAB PO SCH (08:40)
[2021-03-11] MEDS: INSULIN GLARGINE 100 UNITS/ML SQ SCH ×2 (08:41→11:21)
[2021-03-11] MEDS: HEPARIN 5000 UNIT/ML 1 ML VIAL SQ SCH (08:43)
[2021-03-11] MEDS ORDERED: FUROSEMIDE 40 MG TABLET PO SCH (09:00)
[2021-03-11] MEDS ORDERED: TIOTROPIUM 5 SPRAYS/INHALER IH SCH (09:00)
[2021-03-11] MEDS ORDERED: lisinopriL 5 MG TAB PO SCH (09:00)
[2021-03-11] MEDS ORDERED: TAMSULOSIN 0.4 MG SR CAP PO SCH ×2 (09:00)
--- NOTE | 2021-03-11 09:31 | RAD REPORT ---
EXAM DESCRIPTION: RAD - Chest Single View - 03/11/2021 5:18 am CLINICAL HISTORY: Eval Volume status ? pna Chest pain. COMPARISON: Chest Single View dated 03/09/2021 FINDINGS: Portable technique limits examination quality. The lungs are grossly clear. The heart is normal in size. No displaced fractures.Stool lead pacer/def ibrillator device is present. IMPRESSION: No acute intrathoracic process suspected.
[2021-03-11 10:24] VITALS: O2SAT 100
--- NOTE | 2021-03-11 10:42 | RAD REPORT ---
EXAM DESCRIPTION: RAD - Chest Single View - 03/09/2021 9:27 pm CLINICAL HISTORY: 70 years, Male, SOB COMPARISON: None. FINDINGS: Single view of the chest was obtained portable. No prior films are available for compariso n. The cardiomediastinal silhouette demonstrate to be unremarkable. The heart is in the upper moncho l size. The thoracic aorta demonstrate minimal intimal aortic arch calcification. There is a dual-hailey d pacemaker defibrillator via left subtalar. Small focal area of airspace opacity is identified withi n the right lower lung zone suspicious for pneumonia. There are no pleural effusions. External EKG le ads within the [id number]-by-[id number] limits diagnosis. The rest of the soft tissue and bony structures demons trate to be unremarkable. IMPRESSION: Focal area of airspace opacity right lower lung zone suspicious for pneumonia. Pacemaker defibrillator in place. Electronically signed by: Milo Maxr MD 03/09/2021 9:50 PM CDT Due to temporary technical issues with the PACS/Fluency reporting system, reports are being signed by the in house radiologist without review as a courtesy to ensure prompt reporting. The interpreting r adiologist is fully responsible for the content of the report.
--- NOTE | 2021-03-11 11:45 | RAD REPORT ---
EXAM DESCRIPTION: CT - Thorax Wo Michael - 03/10/2021 6:15 am CLINICAL HISTORY: 70 years, Male, dyspnea, hx CHF, recent treated pneumonia without resolutio COMPARISON: None FINDINGS: Multiple transaxial tomograms of the chest were obtained from the lung apices through the adrenal glands, utilizing 5 mm slice thickness at 5 mm interval reconstruction without the administra tion of IV contrast. Multiplanar reformats in the sagittal and coronal plane were generated and reviewed. This exam was performed according to our departmental dose-optimization protocol, which includes auto mated exposure control, adjustment of the mA and/or kV according to patient size and/or use of iterat jahaira reconstruction technique. The lungs parenchyma demonstrate minimal centrilobular emphysematous changes. Small focal area of air space opacity and groundglass density is noted within the posterior segment of the right lower lobe. There is a small right pleural effusion. There is minimal compressive the day changes left lung base with small trace of left pleural effusion. The trachea mainstem bronchus demonstrate to be normal. There is no significant pleural and/or perica rdial effusions. The heart is prominent. There is a pacemaker defibrillator in place. Coronary athero sclerosis. The thoracic aorta demonstrate minimal intimal calcification. Scattered subclinical mediastinal/AP wi ndow lymph nodes most likely reactive in nature. There is no significant mediastinal and/or hilar lym phadenopathy. The axillary regions demonstrate to be clear. The bone windows demonstrate no signifi cant skeletal lesions. The visualized portions of the upper abdomen demonstrate questionable small trace of subcapsular hepa tic fluid. IMPRESSION: Minimal centrilobular emphysematous changes. Small focal area of airspace opacity and groundglass density within the posterior segment of the righ t lower lobe, suspicious for pneumonia. Small right pleural effusion. Trace of left pleural effusion with minimal compressive atelectatic changes left lung base. Mild cardiomegaly with pacemaker defibrillator in place. Questionable small trace of subcapsular hepatic fluid. Electronically signed by: Milo Marx MD 03/10/2021 12:11 AM CDT Due to temporary technical issues with the PACS/Fluency reporting system, reports are being signed by the in house radiologist without review as a courtesy to ensure prompt reporting. The interpreting r adiologist is fully responsible for the content of the report.
--- NOTE | 2021-03-11 13:31 | CON ---
Date of Consultation: 03/10/2021 Reason For Consultation: Congestive heart failure and pneumonia. History Of Present Illness: Mr. Shah is a 70-year-old white male who has a history of defibrillato r, permanent pacemaker, followed by Dr. Avendano in [place] where he lives. He has a history of chronic systolic congestive heart failure, COPD, diabetes, and hypertension, came in with CHF exacerbation a nd pneumonia. Denied chest pain. He denied nausea, vomiting, diaphoresis. He denied palpitations o r syncope. Denied any fever or chills. Past Medical History: As stated above. Allergies: NONE. Review of Systems: Negative. Social History: Negative. Family History: Negative. Medications: Include inhalers, aspirin, Lipitor, Lasix, and insulin. Physical Examination: Vital Signs: His blood pressure was 159/98. He was mildly short of breath. He was in sinus rhythm, afebrile. HEENT: Negative. Neck: Supple without any bruit, lymphadenopathy, JVD, or thyromegaly. Chest: Clear to auscultation and percussion. Cardiac: Revealed a regular rhythm and rate. No murmurs, gallops, or rubs. Abdomen: Benign. Extremities: Revealed no clubbing, cyanosis, or edema. Diagnostic Data: Showed a creatinine of 2.1, glucose is 401, hemoglobin 10.3. BNP was 8678. Impression And Plan: 1.Acute on chronic systolic congestive heart failure. 2.Pneumonia. 3.Chronic obstructive pulmonary disease. 4.Diabetes. 5.Hypertension. 6.Status post defibrillator and pacemaker. I agree with his present regimen right now and agree with what he takes at home, although I am not so sure he is taking his medication. I think he is noncompliant. At one point they gave him a LifeVes t, but he did not wear it. We need to control his sugars better. We need to control his blood press ure better. He should be on carvedilol. Echocardiogram is pending for tomorrow. I will continue to follow him. BEN/KHLOE Voice ID: [id number] Report ID: [id number]
[2021-03-11 17:57] VITALS: TEMP 98.2
[2021-03-11 18:00] VITALS: BP 125/66
--- NOTE | 2021-03-11 20:21 | PN ---
Date of Progress Note: 03/11/2021 The patient was seen today on 03/11/2021 in followup for congestive heart failure. Echocardiogram sh owed an ejection fraction of 20% to 25%. He had an AICD, biventricular pacemaker defibrillator. He is on appropriate therapy right now. His creatinine is 1.8. He may not be a good candidate for Entr esto, but he is on YANA inhibitor, beta-blockers, and Lasix. He feels comfortable enough. He wants t o go home. I discussed the case with Dr. Moon. The patient is free to go home today and he should f ollow up with Dr. Avendano, his immersion metal cleaner in [place] as soon as possible. BEN/KHLOE Voice ID: [id number] Report ID: [id number]
--- NOTE | 2021-03-11 21:52 | PN ---
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 Early in 2020, the patient had acute kidney injury secon timo to sepsis and [facility] dialysis [facility], renal function improved and he was taken off dialysis. The patient has chronic kidney disease. According to the patient, baseline creatinine level about 2 weeks ago was 2.1. The patient became short of breath and family member brought him to the hospital to evaluate for possibl e chest pain and acute coronary syndrome. During this hospitalization, BUN was elevated, creatinine was 2, and GFR 32. The patient was found to have borderline hyperkalemia. Potassium was 5.2. Review of Systems: The patient is feeling better. He denies PND or orthopnea. Physical Examination: Lungs: Normal respiratory effort. Clear to auscultation bilaterally. Heart: S1, S2. Abdomen: Soft, benign. Extremities: Minimal edema. Impression And Plan: 1.Chronic kidney disease, multiple medical problems including history of kidney mass and status post nephrectomy. The patient has cardiorenal syndrome. Due to congestive heart failure, the patient wi ll continue Lasix for volume control and management of congestive heart failure. 2.Hypertension. Blood pressure has been controlled. The patient is taking hydralazine. The patien t will start YANA inhibitor for diabetic kidney disease and congestive heart failure. 3.Hypothyroidism. The patient was started on levothyroxine. He will need to follow up with primary care for further evaluation. 4.Marginal hyperkalemia. Avoid high potassium diet. Continue Lasix for volume control. 5.Unstable angina per primary team and Cardiology. 6.Renal mass, status post resection. The patient will follow up with Urology and Nephrology. EB/MODL Voice ID: [id number] Report ID: [id number]
--- NOTE | 2021-03-12 08:39 | ECHO ---
HEIGHT: 5 ft 8 in WEIGHT: 156 lb 0 oz DATE OF STUDY: 03/11/[address]: Tristin Perla MD 2-DIMENSIONAL: YES M.MODE: YES DOPPLER: YES COLOR FLOW: YES TDS: NO PORTABLE: NO DEFINITY: NO BUBBLE STUDY: NO DIAGNOSIS: CONGESTIVE HEART FAILURE CARDIAC HISTORY: CATHERIZATION: NO SURGERY: NO PROSTHETIC VALVE: NO PACEMAKER: YES MEASUREMENTS (cm) DIASTOLIC (NORMALS) SYSTOLIC (NORMALS) IVSd 1.4 (0.6-1.2) LA Diam 5.0 (1.9-4.0) LVEF 26% LVIDd 5.8 (3.5-5.7) LVIDs 5.1 (2.0-3.5) %FS 12% LVPWd 1.4 (0.6-1.2) Ao Diam 3.5 (2.0-3.7) 2 DIMENSIONAL ASSESSMENT: RIGHT ATRIUM: NORMAL LEFT ATRIUM: DILATED RIGHT VENTRICLE: PACEMAKER LEFT VENTRICLE: DILATED TRICUSPID VALVE: NORMAL MITRAL VALVE: NORMAL PULMONIC VALVE: NORMAL AORTIC VALVE: NORMAL PERICARDIAL EFFUSION: NONE AORTIC ROOT: NORMAL LEFT VENTRICULAR WALL MOTION: SEVERE GLOBAL HYPOKINESIS. DOPPLER/COLOR FLOW: MILD TRICUSPID REGURGITATION. RIGHT VENTRICULAR SYSTOLIC PRESSURE 49 mmHg. COMMENTS: SEVERE GLOBAL HYPOKINESIS. MILD TRICUSPID REGURGITATION. RIGHT VENTRICULAR SYSTOLIC PRESSURE 49 mmHg. LEFT VENTRICULAR EJECTION FRACTION 20-25%. PACEMAKER IN RIGHT VENTRICLE. LEFT ATRIAL ENLARGEMENT. LEFT VENTRICULAR ENLARGEMENT. TECHNOLOGIST: Charles PORTER
[2021-03-17 00:48] LABS: Vitamin D 1,25-Dihydroxy Total 20 pg/mL (18-72); Vitamin D,1,25-OH2, D2 <8 pg/mL
[2021-03-17 01:59] LABS: Albumin, (SPE) 3.5 g/dL (3.8-4.8); Alpha-1-Globulins 0.2 g/dL (0.2-0.3); Alpha-2-Globulins 0.6 g/dL (0.5-0.9); Gamma Globulins 0.8 g/dL (0.8-1.7); INTERPRETATION REPORT
--- NOTE | 2021-03-18 02:30 | P.DS ---
Discharge Date: 03/11/21 Primary Care Provider: Out of town doctor Disposition: ROUTINE DISCHARGE Discharge Condition: GOOD Reason for Admission: CHF exacerbation Consultations: Cardiology Brief History of Present Illness: History of Present Illness: 70-year-old male with history of combined systolic/diastolic congestive heart failure, CKD 3, diabetes mellitus type 2, COPD, hyperlipidemia presents emergency department in respiratory distress, patient was driving his car when he became short of breath and called EMS, patient was reported to be hypoxic in the 80s by EMS. Patient reports he had a recent admission at [facility] for CHF exacerbation with right-sided pneumonia. Patient was treated with IV diuresis and antibiotics and did improve significantly, was down visiting his family today while driving and became suddenly short of breath. Patient was evaluated in the emergency department, labs significant for sodium 135 creatinine 2.1 GFR 32 which patient reports is close to his baseline glucose 396 BNP 8678 initial troponin 0.04 pro calcitonin less than 0.05 white blood cell count 7.3 chest x-ray appears to show volume overload with possible right-sided pneumonia, pending official radiology read, CT chest without contrast also pending. ED provider wishes to admit for CHF exacerbation. Hospital Course: Patient was aggressively diuresed. Patient is feeling much better. Patient's respiratory status is improved. At this time, patient is stable for discharge with outpatient follow-up. Vital Signs/Physical Exam: Temp Pulse Resp BP Pulse Ox 98.2 F 68 19 125/66 96 03/11/21 16:00 03/11/21 17:59 03/11/21 17:47 03/11/21 17:59 03/11/21 17:47 General: Alert, In no apparent distress, Oriented x3 Laboratory Data at Discharge: WBC 8.80 K/uL (4.3-10.9) D 03/11/21 05:50 Hgb 9.5 g/dL (13.6-17.9) L 03/11/21 05:50 Hct 29.2 % (39.6-49.0) L 03/11/21 05:50 Plt Count 135 K/uL (152-406) L D 03/11/21 05:50 PT 12.2 SECONDS (9.5-12.5) 03/09/21 20:25 INR 1.06 03/09/21 20:25 Sodium 137 mmol/L (136-145) 03/11/21 05:50 Potassium 4.6 mmol/L (3.5-5.1) 03/11/21 05:50 BUN 48 mg/dL (7-18) H 03/11/21 05:50 Creatinine 1.85 mg/dL (0.55-1.3) H 03/11/21 05:50 Glucose 87 mg/dL (74-106) 03/11/21 05:50 Uric Acid 10.6 mg/dL (3.5-7.2) H 03/11/21 05:50 Phosphorus 3.0 mg/dL (2.5-4.9) 03/11/21 05:50 Magnesium 2.0 mg/dL (1.8-2.4) 03/11/21 05:50 Total Bilirubin 0.5 mg/dL (0.2-1.0) 03/11/21 05:50 AST 28 U/L (15-37) 03/11/21 05:50 ALT 39 U/L (12-78) 03/11/21 05:50 Alkaline Phosphatase 74 U/L (45-117) 03/11/21 05:50 Troponin I 0.53 ng/mL (0.0-0.045) H* 03/10/21 13:00 Triglycerides 69 mg/dL (<150) 03/10/21 07:58 Cholesterol 124 mg/dL (<200) 03/10/21 07:58 HDL Cholesterol 49 mg/dL (40-60) 03/10/21 07:58 Cholesterol/HDL Ratio 2.53 03/10/21 07:58 Home Medications: Albuterol Inhaler [Ventolin Inhaler*] 1 puff IH Q8H 03/10/21 Atorvastatin Calcium [Lipitor] 40 tab PO DAILY 03/10/21 Dextroamphetamine/Amphetamine [Adderall 30 mg Tablet] 30 tab PO BID 03/10/21 Hydralazine HCl 100 tab PO TID 03/10/21 Insulin Glargine,Hum.rec.anlog [Bennie Solostpadma] 26 unit SQ DAILY 03/10/21 Insulin Lispro [Humalog] See Protocol SQ ACHS 03/10/21 Tamsulosin [Flomax*] 0.4 mg PO DAILY 03/10/21 Tiotropium [Spiriva Handihaler*] 1 puff IH DAILY 03/10/21 Tramadol HCl [Ultram] 50 tab PO BID 03/10/21 carvediloL [Coreg*] 6.25 tab PO BID 03/10/21 Arformoterol Tartrate [Brovana] 15 mcg NEB BIDRESP #60 vial.neb 03/11/21 Atorvastatin Calcium [Lipitor] 40 mg PO BEDTIME #30 tab 03/11/21 Furosemide [Lasix*] 40 mg PO DAILY #30 tab 03/11/21 Potassium Chloride [K-Dur] 10 meq PO M,W,F #15 tab.er.prt 03/11/21 lisinopriL [Prinivil*] 2.5 mg PO DAILY #30 tab 03/11/21 predniSONE [Deltasone*] 10 mg PO BID #21 tab 03/11/21 New Medications: Arformoterol Tartrate [Brovana] 15 mcg NEB BIDRESP #60 vial.neb predniSONE [Deltasone*] 10 mg PO BID #21 tab Potassium Chloride [K-Dur] 10 meq PO M,W,F #15 tab.er.prt Furosemide [Lasix*] 40 mg PO DAILY #30 tab Atorvastatin Calcium [Lipitor] 40 mg PO BEDTIME #30 tab lisinopriL [Prinivil*] 2.5 mg PO DAILY #30 tab Physician Discharge Instructions: Outpt Follow-up with Cardiology in 1-2 weeks Patient will need close follow-up with PCP as well Needs follow-up for cardiomyopathy Return to the ER if symptoms worsens Diet: AHA Followup: NONE,NONE [Primary Care Provider] - Time spent managing pt's care (in minutes): 35
== END 2021-03-11 18:08 | disposition home or self-care (01) | DRG 291 ==
LOC: ER 20:52 → ERHOLD 23:36 → 2ND 03-10 13:27
PROVIDERS: ADMIT Family Medicine; ATTEND Family Medicine
DX: I13.0 Hypertensive heart and chronic kidney disease with heart failure and stage 1 through stage 4 chronic kidney disease, or unspecified chronic kidney disease (principal); I50.43 Acute on chronic combined systolic (congestive) and diastolic (congestive) heart failure; J96.01 Acute respiratory failure with hypoxia; N18.30 Chronic kidney disease, stage 3 unspecified; E11.22 Type 2 diabetes mellitus with diabetic chronic kidney disease; E11.65 Type 2 diabetes mellitus with hyperglycemia; J44.9 Chronic obstructive pulmonary disease, unspecified; E78.5 Hyperlipidemia, unspecified; K21.9 Gastro-esophageal reflux disease without esophagitis; D63.8 Anemia in other chronic diseases classified elsewhere; N40.0 Benign prostatic hyperplasia without lower urinary tract symptoms; I25.10 Atherosclerotic heart disease of native coronary artery without angina pectoris; Z90.5 Acquired absence of kidney; E03.9 Hypothyroidism, unspecified; E87.5 Hyperkalemia; Z95.810 Presence of automatic (implantable) cardiac defibrillator; Z85.528 Personal history of other malignant neoplasm of kidney; Z20.822 Contact with and (suspected) exposure to COVID-19
CPT/HCPCS: 36415; 71045; 71250; 76770; 80048; 80053; 80061; 80076; 81003; 82570; 82607; 82652; 82728; 82746; 82805; 82947; 83036; 83540; 83605; 83735; 83880; 83970; 84100; 84132; 84145; 84156; 84165; 84439; 84443; 84466; 84484; 84550; 85025; 85044; 85610; 86038; 86160; 87040; 87804; 93005; 93306; 94010; 94640; 94660; 94760; 99291; 99292; J0456; J0692; J0696; J1644; J1815; J1940; J2270; J2930; J3370; J7050; J7512; J7605; U0003